=== PATIENT | female | born 1975 | race Caucasian/White ===

== ENCOUNTER → 2021-01-09 08:48 | Outpatient (BNVA) | payer OTHER, MEDICAID, SELFPAY | PROVIDERS: PCP Internal Medicine; Visit Provider Orthopaedic Surgery | DX: E13.9 Other specified diabetes mellitus without complications (principal); M17.11 Unilateral primary osteoarthritis, right knee | CPT/HCPCS: 99212 ==

== ENCOUNTER 2021-01-30 07:57 | Outpatient (REF) | payer OTHER, MEDICAID, SELFPAY ==
--- NOTE | ~2021-01-30 | MM_ITS ---
EXAMINATION: MM SCREENING DIGITAL BREAST TOMOSYNTHESIS, BILATERAL CLINICAL INFORMATION: Screening. Asymptomatic. Prior reduction mammoplasty 2016. The lifetime risk of breast cancer based on the Tyrer-Cuzick Model is 9%. COMPARISON: Mammography: 01/25/2020, 01/16/2019, 01/14/2018 TECHNIQUE: Digital breast tomosynthesis is performed in both the craniocaudal and mediolateral oblique views along with computer-aided detection (CAD). Synthesized 2D images are generated from the tomosynthesis. FINDINGS: There are scattered areas of fibroglandular density (ACR BI-RADS breast composition Category b). There are no significant masses, abnormal calcifications, or other abnormalities. Parenchymal pattern is similar to prior exams. Minor scarring from reduction mammoplasty stable. There is a stable circumscribed nodule posterior 8:00 right breast. MM/MM tomosynthesis screening BI IMPRESSION: No mammographic evidence of malignancy. ASSESSMENT: BI-RADS 2: Benign RECOMMENDATION: Routine annual mammography screening. This patient's information was entered into a reminder system with a target due date for their next mammogram.
== END 2021-01-30 07:58 | disposition home or self-care (01) ==
LOC: HO.MAMMO 07:57
PROVIDERS: PCP Internal Medicine; Visit Provider Internal Medicine
DX: Z12.31 Encounter for screening mammogram for malignant neoplasm of breast (principal)
CPT/HCPCS: 77063; 77067

== ENCOUNTER 2021-03-28 09:33 | Outpatient (REF) | payer OTHER, SELFPAY ==
[2021-03-28 11:21] LABS: MANUAL DIFF FLAG NO
[2021-03-28 11:31] LABS: Basophils Absolute Auto 0.1 X10*3/uL (0.0-0.2); Basophils Percent Auto 0.6 % (0-2); Eosinophils Absolute Auto 0.2 X10*3/uL (0.0-0.4); Eosinophils Percent Auto 2.3 % (0-4); Hematocrit 41.2 % (37-47); Hemoglobin 13.1 g/dl (12.0-16.0); Imm Gran Abs Auto 0.09 X10*3/uL (0.00-0.03); Imm Gran Pct Auto 1.1 % (0.0-0.4); Lymphocytes Absolute Auto 2.1 X10*3/uL (1.2-4.9); Lymphocytes Percent Auto 24.4 % (20-40); Mean Corpuscular HGB Conc 31.8 g/dl (31.0-35.0); Mean Corpuscular Hemoglobin 27.6 pg (27.0-33.0); Mean Corpuscular Volume 86.7 fL (80-98); Mean Platelet Volume 10.1 fL (9.4-12.3); Monocytes Absolute Auto 0.7 X10*3/uL (0.1-1.2); Monocytes Percent Auto 7.7 % (2-11); Neutrophils Absolute Auto 5.4 X10*3/uL (2.0-8.3); Neutrophils Percent Auto 63.9 % (45-73); Platelet Count 375 X10*3/uL (160-400); Red Blood Count 4.75 X10*6/uL (4.20-5.50); White Blood Count 8.4 X10*3/uL (4.8-10.8)
[2021-03-28 11:41] LABS: Estimated Average Glucose 140 mg/dL; Hemoglobin A1c % 6.5 %
[2021-03-28 11:46] LABS: Alanine Aminotransferase 21 U/L (0-31); Albumin Level 4.1 g/dL (3.5-5.0); Alkaline Phosphatase 99 U/L (39-117); Anion Gap 11 (12-20); Aspartate Amino Transferase 13 U/L (5-31); Bilirubin Total 0.5 mg/dL (0.0-1.0); Blood Urea Nitrogen 12 mg/dL (9-16); Calcium 9.1 mg/dL (8.4-10.2); Carbon Dioxide 29 mmol/L (22-29); Chloride 104 mmol/L (96-108); Cholesterol 195 mg/dL; Estimated Glomerular Filt Rate > 60; Glucose Fasting 122 mg/dL (60-99); HDL Cholesterol 41 mg/dL; LDL Cholesterol Calculated 136 mg/dl; Potassium 4.5 mmol/L (3.3-5.1); Sodium 139 mmol/L (135-145); Total Protein 6.9 g/dL (6.5-8.0); Triglycerides 91 mg/dL
[2021-03-28 12:37] LABS: Creatinine Urine 204.45 mg/dL; Microalbum/Creatinine Ratio Ur 7.8 ug/mg cr
[2021-03-29 12:44] LABS: LDL Cholesterol Direct 131 mg/dL (<100)
== END 2021-03-28 09:34 | disposition home or self-care (01) ==
LOC: HO.HMGCLDS 09:33
PROVIDERS: PCP Internal Medicine; Visit Provider Internal Medicine
DX: Z00.01 Encounter for general adult medical examination with abnormal findings (principal); E13.9 Other specified diabetes mellitus without complications; F41.1 Generalized anxiety disorder; J45.909 Unspecified asthma, uncomplicated; Z91.09 Other allergy status, other than to drugs and biological substances
CPT/HCPCS: 36415; 80048; 80053; 80061; 82043; 83036; 83721; 85025

== ENCOUNTER 2021-08-22 07:52 | Outpatient (REF) | payer OTHER, SELFPAY ==
[2021-08-23 09:54] LABS: BV Int Neg Control Negative (Negative); BV Int Pos Control Positive (Positive)
[2021-08-23 11:02] LABS: CT PCR NOT DETECTED (Not Detect.); NG PCR NOT DETECTED (Not Detect.)
== END 2021-08-22 07:53 | disposition home or self-care (01) ==
LOC: HO.LAB 07:52
PROVIDERS: PCP Internal Medicine; Visit Provider Advanced Practice Midwife
DX: Z01.411 Encounter for gynecological examination (general) (routine) with abnormal findings (principal); Z11.3 Encounter for screening for infections with a predominantly sexual mode of transmission; N92.0 Excessive and frequent menstruation with regular cycle
CPT/HCPCS: 87480; 87491; 87510; 87591; 87660

== ENCOUNTER 2021-09-13 10:51 | Outpatient (REF) | payer OTHER, SELFPAY ==
--- NOTE | ~2021-09-13 | US_ITS ---
EXAMINATION: US PELVIS CLINICAL INFORMATION: Excessive and frequent menstruation COMPARISON: Previous pelvic ultrasound January 2017 TECHNIQUE: Ultrasound of the pelvis is performed using both transabdominal and transvaginal transducers along with Doppler. Transvaginal imaging is performed due to inadequate visualization transabdominally. FINDINGS: The uterus is anteverted and measures 11 x 5.6 x 5.7 cm in dimension. Uterine echotexture is heterogeneous. No focal uterine lesion is seen. Endometrial thickness is normal measuring 0.9 cm. There are nabothian cysts in the cervix. The ovaries are normal-appearing. The right ovary measures 2.4 x 1.3 x 2.1 cm. The left ovary measures 2.9 x 2 x 2.1 cm. There is no fluid in the pelvis. US/US pelvic and transvaginal IMPRESSION: Slightly prominent heterogeneous appearing uterus. Normal thickness endometrium. Normal-appearing ovaries.
== END 2021-09-13 10:52 | disposition home or self-care (01) ==
LOC: HO.US 10:51
PROVIDERS: PCP Internal Medicine; Visit Provider Advanced Practice Midwife
DX: N92.0 Excessive and frequent menstruation with regular cycle (principal)
CPT/HCPCS: 76830; 76856

== ENCOUNTER 2021-09-26 07:55 | Outpatient (REF) | payer OTHER, SELFPAY ==
[2021-09-26 11:48] LABS: MANUAL DIFF FLAG NO
[2021-09-26 12:01] LABS: Basophils Percent Auto 0.7 % (0-2); Eosinophils Absolute Auto 0.2 X10*3/uL (0.0-0.4); Eosinophils Percent Auto 4.5 % (0-4); Hematocrit 37.5 % (37.0-47.0); Hemoglobin 11.9 g/dl (12.0-16.0); Imm Gran Abs Auto 0.01 X10*3/uL (0.00-0.03); Imm Gran Pct Auto 0.2 % (0.0-0.4); Lymphocytes Absolute Auto 1.5 X10*3/uL (1.2-4.9); Lymphocytes Percent Auto 33.9 % (20-40); Mean Corpuscular HGB Conc 31.7 g/dl (31.0-35.0); Mean Corpuscular Hemoglobin 27.7 pg (27.0-33.0); Mean Corpuscular Volume 87.2 fL (80.0-98.0); Monocytes Absolute Auto 0.4 X10*3/uL (0.1-1.2); Monocytes Percent Auto 8.1 % (2-11); Neutrophils Absolute Auto 2.3 x10*3/uL (2.0-8.3); Neutrophils Percent Auto 52.6 % (45-73); Platelet Count 272 X10*3/uL (160-400); Red Cell Distribution Width 13.3 % (11.0-16.0); White Blood Count 4.4 X10*3/uL (4.8-10.8)
[2021-09-26 12:16] LABS: Creatinine Urine 140.02 mg/dL; Microalbum/Creatinine Ratio Ur 14.2 ug/mg cr
[2021-09-26 12:55] LABS: Estimated Average Glucose 143 mg/dL; Hemoglobin A1c % 6.6 %
== END 2021-09-26 07:56 | disposition home or self-care (01) ==
LOC: HO.HMGCLDS 07:55
PROVIDERS: PCP Internal Medicine; Visit Provider Internal Medicine
DX: Z00.01 Encounter for general adult medical examination with abnormal findings (principal); E13.9 Other specified diabetes mellitus without complications; F41.1 Generalized anxiety disorder; J45.909 Unspecified asthma, uncomplicated; Z91.09 Other allergy status, other than to drugs and biological substances
CPT/HCPCS: 36415; 82043; 83036; 85025

== ENCOUNTER 2021-09-27 08:09 | Outpatient (REF) | payer OTHER, SELFPAY ==
[2021-09-27 10:20] LABS: Thyroid Stimulating Hormone 1.14 uIU/mL (0.32-4.0)
== END 2021-09-27 08:10 | disposition home or self-care (01) ==
LOC: HO.LAB 08:09
PROVIDERS: PCP Internal Medicine; Visit Provider Advanced Practice Midwife
DX: N92.0 Excessive and frequent menstruation with regular cycle (principal); N76.0 Acute vaginitis; B96.89 Other specified bacterial agents as the cause of diseases classified elsewhere; N93.9 Abnormal uterine and vaginal bleeding, unspecified; N92.1 Excessive and frequent menstruation with irregular cycle
CPT/HCPCS: 36415; 58100; 81025; 84443; 88305

== ENCOUNTER → 2021-10-16 11:09 | Outpatient (BNVA) | payer OTHER, SELFPAY | PROVIDERS: PCP Internal Medicine; Visit Provider Advanced Practice Midwife ==

== ENCOUNTER 2022-01-23 07:01 | Outpatient (REF) | payer OTHER, SELFPAY ==
[2022-01-23 07:32] LABS: Estimated Average Glucose 140 mg/dL; Hemoglobin A1c % 6.5 %
[2022-01-23 07:54] LABS: Alanine Aminotransferase 16 U/L (0-31); Albumin Level 3.9 g/dL (3.5-5.0); Alkaline Phosphatase 79 U/L (39-117); Anion Gap 9 (12-20); Aspartate Amino Transferase 16 U/L (5-31); Bilirubin Total 0.5 mg/dL (0.0-1.0); Blood Urea Nitrogen 10 mg/dL (9-16); Calcium 8.6 mg/dL (8.4-10.2); Carbon Dioxide 27 mmol/L (22-29); Chloride 107 mmol/L (96-108); Cholesterol 180 mg/dL; Estimated Glomerular Filt Rate > 60; Glucose Fasting 126 mg/dL (60-99); HDL Cholesterol 40 mg/dL; LDL Cholesterol Calculated 123 mg/dl; Potassium 4.1 mmol/L (3.3-5.1); Sodium 139 mmol/L (135-145); Total Protein 6.5 g/dL (6.5-8.0); Triglycerides 88 mg/dL
[2022-01-23 08:28] LABS: Creatinine Urine 123.91 mg/dL; Microalbum/Creatinine Ratio Ur 8.8 ug/mg cr
== END 2022-01-23 07:02 | disposition home or self-care (01) ==
LOC: HO.LAB 07:01
PROVIDERS: PCP Internal Medicine; Visit Provider Internal Medicine
DX: E13.9 Other specified diabetes mellitus without complications (principal); F41.1 Generalized anxiety disorder; Z91.09 Other allergy status, other than to drugs and biological substances
CPT/HCPCS: 36415; 80053; 80061; 82043; 83036

== ENCOUNTER 2022-02-06 08:56 | Outpatient (REF) | payer OTHER, SELFPAY ==
--- NOTE | ~2022-02-06 | MM_ITS ---
EXAMINATION: MM SCREENING DIGITAL BREAST TOMOSYNTHESIS, BILATERAL CLINICAL INFORMATION: Screening. Asymptomatic. The lifetime risk of breast cancer based on the Tyrer-Cuzick Model is 9%. COMPARISON: Mammography: 01/30/2021 and studies dating back to 06/16/2012. TECHNIQUE: Digital breast tomosynthesis is performed in both the craniocaudal and mediolateral oblique views along with computer-aided detection (CAD). Synthesized 2D images are generated from the tomosynthesis. FINDINGS: There are scattered areas of fibroglandular density (ACR BI-RADS breast composition Category b). There is a stable proximal pattern of the right breast with no new abnormal dominant mass or suspicious grouping of microcalcifications. About the superior aspect of the left breast, approximately 5 cm from nipple, there is a faint 5 mm density without microcalcifications which was not definitely identified on prior studies. I do not definitely see a correlate on craniocaudal view. On craniocaudal view, there is a lobular density likely related to superposition of fibroglandular tissue, for which spot compression view is also recommended. MM/MM tomosynthesis screening BI IMPRESSION: Left breast densities for further evaluation with spot compression views and possible ultrasound if these are persistent findings. ASSESSMENT: BI-RADS 0: Incomplete - Need Additional Imaging Evaluation RECOMMENDATION: 1. Additional views of the left breast. 2. Targeted ultrasound if warranted after review of the additional views. 3. Radiology department staff will contact the patient for additional imaging. This patient's information was entered into a reminder system with a target due date for their next mammogram.
== END 2022-02-06 08:57 | disposition home or self-care (01) ==
LOC: HO.MAMMO 08:56
PROVIDERS: PCP Internal Medicine; Visit Provider Internal Medicine
DX: Z12.31 Encounter for screening mammogram for malignant neoplasm of breast (principal)
CPT/HCPCS: 77063; 77067

== ENCOUNTER 2022-02-13 08:56 | Outpatient (REF) | payer OTHER, SELFPAY ==
--- NOTE | ~2022-02-13 | MM_ITS ---
EXAMINATION: MM DIAGNOSTIC DIGITAL BREAST TOMOSYNTHESIS, LEFT CLINICAL INFORMATION: Recall from screening for question of unrelated asymmetric densities left breast. Prior history reduction mammoplasty 2016. COMPARISON: Mammography: 02/06/2022, 01/30/2021, 01/25/2020, 01/16/2019, 01/14/2018, 01/11/2017 TECHNIQUE: Digital breast tomosynthesis is performed. 2D images are generated from the tomosynthesis. The following views are obtained: Spot CC, spot ML x2. FINDINGS: There are scattered areas of fibroglandular density (ACR BI-RADS breast composition Category b). The additional views show no persistent asymmetric density or interval developing density or architectural abnormality. Parenchymal pattern is similar to prior studies. Results are discussed with the patient at time of visit. MM/MM tomosynthesis added views L IMPRESSION: Additional views show no persistent asymmetric density or other abnormality. No significant changes from prior studies. ASSESSMENT: BI-RADS 1: Negative RECOMMENDATION: Routine annual mammography screening. This patient's information was entered into a reminder system with a target due date for their next mammogram.
== END 2022-02-13 08:57 | disposition home or self-care (01) ==
LOC: HO.MAMMO 08:56
PROVIDERS: Visit Provider Internal Medicine
DX: R92.8 Other abnormal and inconclusive findings on diagnostic imaging of breast (principal); Z41.1 Encounter for cosmetic surgery
CPT/HCPCS: 77061; 77065

== ENCOUNTER 2022-02-19 12:26 | Outpatient (REF) | payer OTHER, MEDICAID, SELFPAY ==
--- NOTE | ~2022-02-19 | XR_ITS ---
EXAMINATION: KNEE X-RAY CLINICAL INFORMATION: Pain COMPARISON: Right knee MRI from 2018 TECHNIQUE: Standing AP view of both knees and lateral and sunrise view of the left knee FINDINGS: Left knee: Bone alignment is normal. No fracture or dislocation is seen. There are small osteophytes at the medial femoral tibial and patellofemoral joints. There is no joint effusion. Standing AP view of the right knee demonstrates arthritis at the medial femoral tibial joint with joint space narrowing and osteophyte formation. XR/XR knee LT 2V IMPRESSION: Degenerative changes.
--- NOTE | ~2022-02-19 | XR_ITS ---
EXAMINATION: KNEE X-RAY CLINICAL INFORMATION: Pain COMPARISON: Right knee MRI from 2018 TECHNIQUE: Standing AP view of both knees and lateral and sunrise view of the left knee FINDINGS: Left knee: Bone alignment is normal. No fracture or dislocation is seen. There are small osteophytes at the medial femoral tibial and patellofemoral joints. There is no joint effusion. Standing AP view of the right knee demonstrates arthritis at the medial femoral tibial joint with joint space narrowing and osteophyte formation. XR/XR knee standing BI IMPRESSION: Degenerative changes.
== END 2022-02-19 12:27 | disposition home or self-care (01) ==
LOC: HO.HOSX 12:26
PROVIDERS: PCP Internal Medicine; Visit Provider Orthopaedic Surgery
DX: M23.92 Unspecified internal derangement of left knee (principal)
CPT/HCPCS: 73560; 73565; 99212

== ENCOUNTER → 2022-04-26 08:56 | Outpatient (BNVA) | payer OTHER, SELFPAY | PROVIDERS: PCP Internal Medicine; Visit Provider Orthopaedic Surgery | DX: M23.92 Unspecified internal derangement of left knee (principal) | CPT/HCPCS: 99212 ==

== ENCOUNTER 2022-05-14 13:48 | Outpatient (REF) | payer OTHER, SELFPAY ==
--- NOTE | ~2022-05-14 | MR_ITS ---
EXAMINATION: MR KNEE WITHOUT CONTRAST, LEFT CLINICAL INFORMATION: Unspecified internal derangement. COMPARISON: X-ray 02/19/2022 TECHNIQUE: MRI of the knee without contrast was performed using routine sequences on a high-field scanner. FINDINGS: MENISCI: Medial Meniscus: There is degenerative fraying of the posterior root. Otherwise intact. Lateral Meniscus: Intact LIGAMENTS: Cruciate: ACL is intact. Mild T2 signal in the PCL, could reflect myxoid degeneration and/or sprain.. Collateral: Intact EXTENSOR MECHANISM: Intact ARTICULAR CARTILAGE/BONE: Patellofemoral Compartment: Foci of cartilage fissuring in the central patella and lateral patellar facet. Medial Compartment: Foci mild cartilage fissuring in the weightbearing femur. Degenerative cysts underlying the tibial spines. Lateral Compartment: Intact. JOINT FLUID AND BURSAE: Small effusion. Subcutaneous edema anteriorly. Small cystic focus adjacent to the proximal lateral gastrocnemius tendon, probable ganglion cyst. MR/MR knee LT wo con IMPRESSION: 1. Degenerative fraying of the posterior root of the medial meniscus. 2. ACL findings could reflect myxoid degeneration and/or sprain. 3. Mild patellofemoral and medial compartment arthritis. 4. Small effusion. Probable small ganglion cyst adjacent to the proximal lateral gastrocnemius tendon.
== END 2022-05-14 13:49 | disposition home or self-care (01) ==
LOC: HO.MRI 13:48
PROVIDERS: Visit Provider Orthopaedic Surgery
DX: M23.92 Unspecified internal derangement of left knee (principal)
CPT/HCPCS: 73721

== ENCOUNTER → 2022-05-24 14:31 | Outpatient (BNVA) | payer OTHER, SELFPAY | PROVIDERS: PCP Internal Medicine; Visit Provider Orthopaedic Surgery | DX: S83.242A Other tear of medial meniscus, current injury, left knee, initial encounter (principal) | CPT/HCPCS: 99212 ==

== ENCOUNTER 2022-06-11 15:00 | Outpatient (RCR) | payer OTHER, SELFPAY ==
--- NOTE | 2022-05-16 11:40 | MHC.PT.EP ---
[facility] [place] Office [place] Office [place] Office [address] [phone] F: [phone] F: [phone] F: [phone] F: [phone] Physical Therapy Plan of Care Date of Evaluation: Date of Surgery: N/A Diagnosis: Unspecified internal derangement of left knee Assessment: Geri is a 47 yo F referred to PT for unspecified internal derangement of left knee. She has difficulty walking for greater than 40 minutes at a time, kneeling and ambulates stairs 1 step at a time with difficulty. She receives some help with ADLs and is unable to go bike riding. Upon exam she presents with decrease hip and knee strength, TTP over medial knee joint line, pes anserine, ITB and lack of functional endurance. She also has slightly limited lumbar ROM. Geri will benefit from skilled PT to address the aforementioned impairments and relieve tissue strain in L IT Band, proximal gastroc, and distal hamstring along with education on proper gait mechanics. Frequency and Duration: The patient will be seen 2/ week for 5 weeks Short Term Goals: Patient will reports a 50% decrease in pain that will allow her to advance to functional activities in 3 weeks. Patient will able to move knee through full plane of motion without pain which will enable her negotiate stairs without pain in 3 weeks. Care Home Goals: Patient will be I with [facility] to encourage detention pain management strategies and maintain level of function in 5 weeks. Patient will demonstrate a 1/2 grade increase in gross hip and knee strength that will allow her to walk for extended periods of time at work without onset of pain in 5 weeks. Treatment Plan: Modalities to reduce pain, spasms and effusion. Manual therapy to restore motion and function. Therapeutic exercise to improve strength and flexibility. Neuromuscular re-education for posture and balance. Therapeutic activities to return to functional activities of daily living. Electronically signed by: Deana Zhang PT DPT Please sign and return to therapist. Thank you for your referral.
--- NOTE | 2022-07-19 08:42 | MHC.PT.DC ---
[facility] [place] Office [place] Office [place] Office [address] [phone] F: [phone] F: [phone] F: [phone] F: [phone] Physical Therapy Discharge Report Diagnosis: Unspecified internal derangement of left knee Date of Surgery: N/A Date of Evaluation: 05/16/22 Date of Discharge: 07/19/22 Treatments to Date: 8 Cancellations to Date: No Shows to Date: Discharge Status: Improved Function Independent with HEP Discharge Summary: Geri completed 8 PT visits. She has improved significantly and is independent with all HEPs. She however reports of not having complete resolution of symptoms. She was therefore advised to continue with HEP. Geri has been d/c from PT. Electronically signed by: Deana Zhang PT DPT Please sign and return to therapist. Thank you for your referral.
== END 2022-08-22 13:49 | disposition home or self-care (01) ==
LOC: HO.PT 15:00
PROVIDERS: PCP Internal Medicine; Visit Provider Orthopaedic Surgery
DX: M23.92 Unspecified internal derangement of left knee (principal)
CPT/HCPCS: 97035; 97110; 97140; 97161

== ENCOUNTER → 2022-06-28 08:56 | Outpatient (BNVA) | payer OTHER, SELFPAY | PROVIDERS: PCP Internal Medicine; Visit Provider Orthopaedic Surgery | DX: S83.242A Other tear of medial meniscus, current injury, left knee, initial encounter (principal) | CPT/HCPCS: 20610; 99212; J1100 ==

== ENCOUNTER 2022-07-12 18:13 | Emergency (ER) | payer OTHER, SELFPAY ==
--- NOTE | ~2022-07-12 | XR_ITS ---
EXAMINATION: XR KNEE, LEFT CLINICAL INFORMATION: Pain COMPARISON: 02/19/2022 TECHNIQUE: Four views of the left knee. FINDINGS: Osseous alignment is anatomic. Joint spaces appear relatively well-preserved with minimal spurring noted. No acute fracture is seen. No significant effusion. XR/XR knee LT 3V IMPRESSION: No acute findings identified.
--- NOTE | ~2022-07-12 | US_ITS ---
US/US venous duplex LE LT IMPRESSION: No DVT demonstrated in the left lower extremity. EXAMINATION: US VENOUS ULTRASOUND WITH DOPPLER LOWER EXTREMITY, LEFT CLINICAL INFORMATION: Left lower extremity pain COMPARISON: None TECHNIQUE: Ultrasound of the deep veins is performed from the hip to the calf with compression sonography and color and pulse Doppler assessment. Spectral analysis with color-flow imaging is performed. FINDINGS: There is normal venous compression and respiratory variation and augmented flow. The visualized common femoral vein, superficial femoral vein, profunda femoral vein, popliteal vein, and the trifurcation region shows no evidence of deep venous thrombosis. There is no significant popliteal fossa cyst. If the patient's symptoms persist, followup ultrasound in 5 days 7 days might be of value to exclude proximal propagation from a non-visualized calf vein.
[2022-07-12 19:21] VITALS: PULSE 82; RESP 14; TEMP 36.8; O2SAT 99; BMI 41.5
[2022-07-12 19:30] VITALS: BP 125/62; PULSE 65; RESP 14; TEMP -17.7; TEMP 0.2; O2SAT 99; BMI 41.5
--- NOTE | 2022-07-12 23:02 | ED_ITS ---
HPI - Extremity Injury (Lower) General Chief Complaint: Extremity Injury, Lower Stated Complaint: pain behind left knee Time Seen by Provider: 07/12/22 22:59 History of Present Illness HPI Narrative: Patient is a 47-year-old female presents today with having left knee pain that is been ongoing for the last 2 months. Been seen by an orthopedist had an MRI of the knee done. It was positive for having a meniscal tear. Now is complaining of worsening pain especially in the back of the knee. Patient denies any swelling. No history of being on control pills. No history of shortness of breath. No history of blood clots no history of cancer. Patient is from home. She is larger in size. She denies any chest pain shortness of breath dizziness nausea vomiting. The pain is localized it is worse with walking. Patient is from home. Related Data Home Medications Medication Instructions Recorded Confirmed fluticasone furoate 200 1 inh inhalation DAILY 03/27/22 03/27/22 mcg-vilanterol 25 mcg/dose inhalation powder (Breo Ellipta) Previous Rx's Medication Instructions Recorded albuterol sulfate 90 mcg/actuation 2 puff inhalation Q4-6H PRN 03/28/21 aerosol inhaler (ProAir HFA) bronchospasm 30 days #18 grams venlafaxine 37.5 mg 37.5 mg PO DAILY 90 days #90 caps 03/28/21 capsule,extended release 24 hr cetirizine 10 mg capsule (All Day 10 mg PO DAILY 90 days #90 caps 02/13/22 Allergy (cetirizine)) prednisone 10 mg tablet 10 mg PO DAILY 7 days #7 tabs 03/27/22 oxycodone 5 mg tablet 5 mg PO Q8H PRN pain #7 tabs 07/13/22 Allergies Allergy/AdvReac Type Severity Reaction Status Date / Time shellfish derived Allergy Severe HIVES/SWELL Verified 06/28/22 09:01 [SHELLFISH DERIVED] ING Environmental Allergy Unknown unknown Uncoded 01/26/22 09:22 Fruits Allergy Unknown hives/swell Uncoded 01/26/22 09:22 ing Raw fruits Allergy Unknown itching, Uncoded 01/26/22 09:22 rhinitis Review of Systems Review of Systems: Positive for left knee pain. Yes all other systems are reviewed and are negative PMFSH Past Medical History Attestation statement: The following information was validated with the patient. Medical History Anxiety, generalized Diabetes 1.5, managed as type 2 Environmental allergies Surgical History History of bilateral tubal ligation History of breast biopsy History of section History of wisdom tooth extraction Status post breast reduction Family History Family History Family/Other HTN (hypertension) Depression Type 2 diabetes mellitus Mother Asthma Arthritis Maternal Grandfather No problems noted. Maternal Grandmother No problems noted. Paternal Grandfather No problems noted. Paternal Grandmother No problems noted. Brother No problems noted. Brother No problems noted. Daughter No problems noted. Sister No problems noted. Sister Mental health disorder Sister No problems noted. Sister No problems noted. Son No problems noted. Son No problems noted. 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 Oriented X3. No acute distress. Eyes: Pupils equal, round and reactive to light. ENT: Pharynx normal. Neck: Normal inspection. Neck supple. No lymph nodes noted. No crepitus CVS: Normal heart rate and rhythm. Pulses normal. Normal S1 and S2 Respiratory: No respiratory distress. Breath sounds normal. No Wheezing. No rales Abdomen: Soft and nontender. No rigidity. No distention. good BS x4 Skin: Skin warm and dry. Normal skin color. Normal skin turgor. Extremities: Examination of the left leg showed no patellar tenderness. No medial lateral collateral ligament tenderness. There is no calf swelling. Range of motion at the knee grossly intact. Distal pulses intact. The calf size approximately equal at 10 cm below the tibial tuberosity bilaterally. Distal pulses intact 2+ at dorsalis pedis. Sensation over the foot intact. Neuro: Oriented X 3. No motor deficit. No sensory deficit. Moving all e xtermities. No slurred speech MDM - Extremity Injury (Lower) MDM Narrative Medical decision making narrative: Patient's x-ray showed no acute fracture. Ultrasound of lower extremity showed no acute DVT. Will discharge patient home. Question meniscal tear. Will require follow-up with orthopedics. Discharge Plan Discharge Clinical Impression: Acute meniscal injury of knee Patient Disposition: Home, Self-Care Instructions: Meniscus Tear (ED) Prescriptions: New oxycodone 5 mg tablet 5 mg PO Q8H PRN (Reason: pain) Qty: 7 0RF Rx Instructions: Partial Fill upon patient request. No Action All Day Allergy (cetirizine) 10 mg capsule 10 mg PO DAILY 90 Days Qty: 90 1RF venlafaxine 37.5 mg capsule,extended release 24hr 37.5 mg PO DAILY 90 Days Qty: 90 1RF albuterol sulfate [ProAir HFA] 90 mcg/actuation HFA aerosol inhaler 2 puff inhalation Q4-6H PRN (Reason: bronchospasm) 30 Days Qty: 18 5RF Breo Ellipta 200-25 mcg/dose blister with device 1 inh inhalation DAILY prednisone 10 mg tablet 10 mg PO DAILY 7 Days Qty: 7 0RF Referrals: Arnaldo Gamez MD [Physician] -
== END 2022-07-13 00:43 | disposition home or self-care (01) ==
PROVIDERS: Emergency Provider Emergency Medicine Emergency Medical Services; PCP Internal Medicine
DX: S83.242A Other tear of medial meniscus, current injury, left knee, initial encounter (principal); X58.XXXA Exposure to other specified factors, initial encounter; M25.562 Pain in left knee; Y93.9 Activity, unspecified; Y92.9 Unspecified place or not applicable; Y99.9 Unspecified external cause status
CPT/HCPCS: 73562; 93971; 99282; 99284

== ENCOUNTER → 2022-07-19 09:41 | Outpatient (BNVA) | payer OTHER, SELFPAY | PROVIDERS: PCP Internal Medicine; Visit Provider Orthopaedic Surgery | DX: S83.242D Other tear of medial meniscus, current injury, left knee, subsequent encounter (principal) | CPT/HCPCS: 99212 ==

== ENCOUNTER 2022-08-01 10:57 | Day surgery (SDC) | payer OTHER, SELFPAY ==
[2022-07-26 14:20] VITALS: BMI 41.5
[2022-08-01] VITALS (9 sets, daily range): BP systolic 119–153; BP diastolic 68–98; PULSE 57–69; RESP 16–18; TEMP 36.3–36.4; O2SAT 95–99
[2022-08-01] MEDS: Lactated Ringers 1,000 ML 50 ML IVCONT (11:27)
--- NOTE | 2022-08-01 13:15 | HO.ANESPROP2 ---
HPI - Anesthesia Eval Consult details Narrative: 47 F for left knee scope Obesity, Asthma PMFSH Active Problems Active Problems: All Active Problems (Updated 07/26/22 @ 13:32 by Josephine Villeda RN) Encounter for general adult medical examination with abnormal findings (Acute) Asthma, moderate (Acute) Encounter for annual routine gynecological examination (Acute) Heavy menstrual bleeding (Acute) Morbid obesity with BMI of 40.0-44.9, adult (Acute) Internal derangement of left knee (Acute) Asthma exacerbation (Acute) Tear of medial meniscus of left knee (Acute) Diabetes 1.5, managed as type 2 (Acute) Environmental allergies (Acute) Anxiety, generalized (Acute) Past Medical History Medical History (Updated 07/26/22 @ 13:32 by Josephine Villeda RN) Anxiety, generalized Asthma Diabetes 1.5, managed as type 2 Environmental allergies Obesity Functional capacity: independent ambulation Family History Family History Family/Other HTN (hypertension) Depression Type 2 diabetes mellitus Mother Asthma Arthritis Maternal Grandfather No problems noted. Maternal Grandmother No problems noted. Paternal Grandfather No problems noted. Paternal Grandmother No problems noted. Brother No problems noted. Brother No problems noted. Daughter No problems noted. Sister No problems noted. Sister Mental health disorder Sister No problems noted. Sister No problems noted. Son No problems noted. Son No problems noted. 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 Cognitive needs: No Hearing needs: No Vision needs: Yes Meds Allergies Allergy/AdvReac Type Severity Reaction Status Date / Time shellfish derived Allergy Severe HIVES/SWELL Verified 07/26/22 13:32 [SHELLFISH DERIVED] ING Environmental Allergy Unknown unknown Uncoded 07/26/22 13:32 Fruits Allergy Unknown hives/swell Uncoded 07/26/22 13:32 ing Raw fruits Allergy Unknown itching, Uncoded 07/26/22 13:32 rhinitis Active Medications: Current Medications Lactated Ringer's (Lr) 1,000 mls @ 50 mls/hr IVCONT .Q20H GRANT Last Admin: 08/01/22 11:27 Dose: 50 mls/hr Exam Exam Date and Time: August 01, 2022 1315 Height,Weight and Vital Signs: Height 5 ft 1 in Weight 99.79 kg Last Vital Signs Temp 97.6 F 08/01/22 11:05 Pulse 68 08/01/22 11:05 Resp 18 08/01/22 11:05 BP 152/98 H 08/01/22 11:05 Pulse Ox 97 08/01/22 11:05 O2 Del Method 08/01/22 11:05 Airway Mallampati Class: III TM Dist: >3cm Neck ROM: Full Loose/Missing/Broken Teeth: Yes Heart: S1,S2 Lungs: b/l breath sounds Assessment and Plan Assessment Anesthesia Assessment: Anesthesia Plan Discussed and Chart Reviewed Final Anesthetic Review Family History of Problems with Anesthesia: No History of Problems with Anesthesia: No NPO: Yes ASA Class: III Final Preanesthetic Review: Meds/Allgs Chart Reviewed, Consent Obtained/Reviewed and Anes Risks/Benef Reviewed Patient Risk: Intermediate Procedure Risk: Intermediate Anesthetic Plan Anesthetic Plan: GA Disposition: Standard PACU
--- NOTE | 2022-08-01 13:16 | MHC.SHP ---
Pre-Procedural Eval Section A Date of Service: 08/01/22 The patient is an INPATIENT: No Changes since office visit: Yes Patient answered all questions; No Cold of Flu in the past 2 weeks, No New Medical Problems and No Changes in Medication The History & Physical has been completed within 30 days and I have reviewed it.: Yes Section B Chief Complaint: Other tear of medial meniscus, current injury, lef Allergies: Allergies Allergy/AdvReac Type Severity Reaction Status Date / Time shellfish derived Allergy Severe HIVES/SWELL Verified 07/26/22 13:32 [SHELLFISH DERIVED] ING Environmental Allergy Unknown unknown Uncoded 07/26/22 13:32 Fruits Allergy Unknown hives/swell Uncoded 07/26/22 13:32 ing Raw fruits Allergy Unknown itching, Uncoded 07/26/22 13:32 rhinitis Plan I have reviewed the history and physical and performed a pertinent physical examination on my patient. No changes have occurred unless specified.
--- NOTE | 2022-08-01 14:07 | P.BOP_ITS ---
Brief Operative Note Date of Service: 08/01/22 Pre-op diagnosis: Left knee internal derangement Post-op diagnosis: other (1) left knee OA. 2) left knee paelar maltracking) Procedure: Chondroplasty and lateral release left knee Surgeon: Arnaldo Gamez MD Anesthesia: GETA and local Was an Pre Sales Technical Consultant used for this Procedure?: No Estimated blood loss (mL): 5 Tourniquet time (min): 16 IV fluids (mL): 500 Pathology: none sent Condition: stable Disposition: PACU
--- NOTE | 2022-08-01 14:18 | P.OP_ITS ---
Operative Note Operative Note Date of Service: 08/01/22 Narrative: Date of Service: 08/01/22 Pre-op diagnosis: Left knee internal derangement Post-op diagnosis: other (1) left knee OA. 2) left knee patellar maltracking) Procedure: Chondroplasty and lateral release left knee Surgeon: Arnaldo Gamez MD Anesthesia: GETA and local Was an Ampoule Examiner used for this Procedure?: No Estimated blood loss (mL): 5 Tourniquet time (min): 16 IV fluids (mL): 500 Pathology: none sent Condition: stable Disposition: PACU Procedure in detail: Patient was brought to the operating room placed supine on the arthroscopic table and prepped and draped in standard sterile fashion. A time-out was called to identify proper site proper procedure proper surgeon and IV antibiotics per weight were administered. I began by exsanguinating the limb and insufflating tourniquet to 300 mm Hg. Then made a standard anterolateral stab incision. The knee was insufflated with water and 30 degree arthroscope was placed. There was grade 2/3 fibrillations of the central facet of the patella but overall suprapatellar pouch was plane and the gutters were clean. The patella was lateralized relative to the trochlea. I descended into the medial compartment where I made my medial portal under direct visualization. There was an intact medial meniscus. This was probed and while there were some minimal fibrillations, no intervention was required. The root was intact and there was grade 2 /3 changes throughout the weight bearing portion of the medial femoral condyle. This was debrided with a shaver and cautery. . The ACL/PCL was examined and found to be intact and the lateral compartment also was without the need for intervention. I then returned to the PF joint. I debrided the chondral fibrillations and perfromed a limited lateral release. This improved the medialization of the patella. I then removed all instrumentation and closed the portals with nylon suture. 25 mL of 2% Marcaine with epinephrine was injected into the joint and the surrounding soft tissues. Patient was then placed in sterile dressing extubated brought recovery room stable condition. There were no known complications.
[2022-08-01] MEDS: Acetaminophen 325 MG TABLET 650 MG PO (14:36)
[2022-08-01] MEDS: oxyCODONE HCl Immed Release 5 MG TABLET PO (14:37)
== END 2022-08-01 16:00 | disposition home or self-care (01) ==
PROVIDERS: PCP Internal Medicine; Visit Provider Orthopaedic Surgery
PROC: (CPT 29870; principal; 2022-08-01 14:00)
DX: M23.92 Unspecified internal derangement of left knee (principal); M22.2X2 Patellofemoral disorders, left knee; M17.12 Unilateral primary osteoarthritis, left knee; M25.462 Effusion, left knee; E13.9 Other specified diabetes mellitus without complications; J45.909 Unspecified asthma, uncomplicated; Z79.899 Other long term (current) drug therapy; Z98.890 Other specified postprocedural states
CPT/HCPCS: 29873; J0171; J0690; J1100; J2250; J2405; J2795; J3010

== ENCOUNTER 2022-09-18 09:00 | Outpatient (RCR) | payer OTHER, SELFPAY ==
--- NOTE | 2022-08-07 14:44 | MHC.PT.EP ---
[facility] [place] Office [place] Office [place] Office [address]ell Nu[address]ez [address] [phone] F: [phone] F: [phone] F: [phone] F: [phone] Physical Therapy Plan of Care Date of Evaluation: Date of Surgery: Diagnosis: LEFT KNEE Assessment: SANTO IS A PLEASANT 47 YO WHO PRESENTS POD #5 FOR ORTHOPEDIC FOLLOW UP AND PT EVALUATION FOLLOWING LATERAL RELEASE AND CHRONDROPLASTY. UPON EXAM SHE DEMONSTRATES THE EXPECTED IMPAIRMENTS OF DECREASED ROM, DECREASED STRENGTH, ALTERED POSTURE AND POSITIONING,ALTERED GAIT AND BALANCE, AND INCREASED PAIN AND EDEMA. FUNCTIONAL LIMITATIONS INCLUDE DECREASED ABILITY TO PERFORM HOMEMAKING AND SELF-CARE TASKS, DECREASED ABILITY TO PERFORM WALKING, RUNNING, JUMPING AND SQUATTING, INABILITY TO DRIVE AND PERFORM WORK TASKS, DECREASED PARTICIPATION IN COMMUNITY AND RECREATIONAL ACTIVITIES AND DISRUPTED SLEEP. THE Pt IS A GOOD CANDIDATE FOR SKILLED PT DUE TO AGE, POTENTIAL REMEDIATION OF IMPAIRMENTS, TYPICAL DISEASE/CONDITION PROGRESSION AND PROGNOSIS, COMORBIDITIES, AND MOTIVATION. PT WOULD BENEFIT FROM TAILORED PROGRAM OF THERAPEUTIC ACTIVITIES, FUNCTIONAL TRAINING, GAIT TRAINING, POSTURAL EDUCATION, NEUROMUSCULAR RE-EDUCATION, AND MODALITIES NEEDED. 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 Manual therapy to restore motion and function. Therapeutic exercise to improve strength and flexibility. Neuromuscular re-education for posture and balance. Therapeutic activities to return to functional activities of daily living. Electronically signed by: PRASHANTH HERRERA PT, DPT Please sign and return to therapist. Thank you for your referral.
--- NOTE | 2022-09-03 11:09 | MHC.PT.EP ---
[facility] [place] Office [place] Office [address] [phone] F: [phone] F: [phone] F: [phone] F: [phone] Physical Therapy Plan of Care Date of Evaluation: Date of Surgery: 08/01/22 Diagnosis: LEFT KNEE Assessment: : Geri is presenting with swelling, worse with WBing activities at work. She has full AROM this visit but painful end range and medial incision site is still not fully closed, questionable internal stitch poking through skin. She is able to progress more standing exercises to challenge her balance, working on quad and glute strengthening and endurance. She will benefit from continued skilled PT to work on functional movement and activities to restore to PLOF; 2x/week for 4 weeks. Frequency and Duration: The patient will be seen 2 X WEEK FOR 4 WEEKS Short Term Goals: INITIATE HEP AND PROMOTE SELF MANAGEMENT OF SYMPTOMS. [employer] Goals: TO DEMONSTRATE FULL KNEE ROM, EQUAL ADALBERTO MET TO DEMONSTRATE FULL LE STRENGTH, EQUAL ADALBERTO NOT MET TO ASCEND AND DESCEND STAIRS WITH RECIPROCAL GAIT WITHOUT PAIN GREATER THAN 2/10 NOT MET TO AMBULATE AD SEJAL ON LEVEL AND UNEVEN SURFACES FOR FITNESS WITHOUT PAIN GREATER THAN 2/10 NOT MET Treatment Plan: Modalities to reduce pain, spasms and effusion. Manual therapy to restore motion and function. Therapeutic exercise to improve strength and flexibility. Neuromuscular re-education for posture and balance. Therapeutic activities to return to functional activities of daily living. Electronically signed by: Jose Coon PT, DPT Please sign and return to therapist. Thank you for your referral.
--- NOTE | 2022-12-06 09:57 | MHC.PT.DC ---
[facility] [place] Office [place] Office [place] Office [address] Jewell Nuñez 140 [facility] [phone] F: [phone] F: [phone] F: [phone] F: [phone] Physical Therapy Discharge Report Diagnosis: LEFT KNEE Date of Surgery: 08/01/22 Date of Evaluation: 08/06/22 Date of Discharge: 12/06/22 Treatments to Date: 9 Cancellations to Date: 0 No Shows to Date: 0 Discharge Status: Patient Elected to Stop Discharge Summary: Patient was last treated in PT 09/18/2021. She ceased attending PT on her own accord and is therefore discharged from PT at this time. Electronically signed by: Jose Coon, PT, DPT Please sign and return to therapist. Thank you for your referral.
== END 2022-12-06 09:58 | disposition home or self-care (01) ==
LOC: HO.PT 09:00
PROVIDERS: Visit Provider Physician Assistant
DX: S83.242A Other tear of medial meniscus, current injury, left knee, initial encounter (principal)
CPT/HCPCS: 97110; 97112; 97116; 97140; 97161; 97530

== ENCOUNTER 2022-09-20 11:46 | Outpatient (REF) | payer OTHER, SELFPAY ==
[2022-09-20 15:18] LABS: CT PCR NOT DETECTED (Not Detect.); NG PCR NOT DETECTED (Not Detect.)
[2022-09-21 11:13] LABS: BV Int Neg Control Negative (Negative); BV Int Pos Control Positive (Positive)
== END 2022-09-20 11:47 | disposition home or self-care (01) ==
LOC: HO.LNP 11:46
PROVIDERS: Visit Provider Advanced Practice Midwife
DX: Z01.419 Encounter for gynecological examination (general) (routine) without abnormal findings (principal)
CPT/HCPCS: 87480; 87491; 87510; 87591; 87660

== ENCOUNTER 2022-09-26 12:29 | Outpatient (REF) | payer OTHER, SELFPAY ==
--- NOTE | ~2022-09-26 | XR_ITS ---
EXAMINATION: XR CHEST CLINICAL INFORMATION: Morbid obesity. COMPARISON: None TECHNIQUE: 2 views of the chest were obtained. FINDINGS: No significant abnormality is noted involving the heart, lungs, mediastinum, bony thorax or soft tissues. XR/XR chest 2V IMPRESSION: Unremarkable examination.
--- NOTE | 2022-09-26 12:37 | ECG_ITS ---
Test Reason : Obesity Blood Pressure : / mmHG Vent. Rate : 060 BPM Atrial Rate : 060 BPM P-R Int : 132 ms QRS Dur : 096 ms QT Int : 406 ms P-R-T Axes : 061 030 041 degrees QTc Int : 406 ms Normal sinus rhythm Normal ECG No previous ECGs available Referred By: Hernán Hernandez Electronically Signed By:JEMMA MARRERO MD
== END 2022-09-26 12:30 | disposition home or self-care (01) ==
LOC: HO.XRAY 12:29
PROVIDERS: PCP Internal Medicine; Visit Provider Surgery
DX: E66.01 Morbid (severe) obesity due to excess calories (principal); E13.9 Other specified diabetes mellitus without complications; J45.909 Unspecified asthma, uncomplicated; K21.9 Gastro-esophageal reflux disease without esophagitis
CPT/HCPCS: 71046; 93005

== ENCOUNTER 2022-09-27 07:49 | Outpatient (REF) | payer OTHER, SELFPAY ==
[2022-09-27 08:03] LABS: MANUAL DIFF FLAG NO
[2022-09-27 08:20] LABS: Basophils Absolute Auto 0.1 X10*3/uL (0.0-0.2); Basophils Percent Auto 0.8 % (0-2); Eosinophils Absolute Auto 0.2 X10*3/uL (0.0-0.4); Eosinophils Percent Auto 2.6 % (0-4); Hematocrit 39.8 % (37.0-47.0); Hemoglobin 12.7 g/dl (12.0-16.0); Imm Gran Abs Auto 0.02 X10*3/uL (0.00-0.03); Imm Gran Pct Auto 0.3 % (0.0-0.4); Lymphocytes Absolute Auto 1.7 X10*3/uL (1.2-4.9); Lymphocytes Percent Auto 21.4 % (20-40); Mean Corpuscular HGB Conc 31.9 g/dl (31.0-35.0); Mean Corpuscular Hemoglobin 26.9 pg (27.0-33.0); Mean Corpuscular Volume 84.3 fL (80.0-98.0); Mean Platelet Volume 9.7 fL (9.4-12.3); Monocytes Absolute Auto 0.6 X10*3/uL (0.1-1.2); Monocytes Percent Auto 7.6 % (2-11); Neutrophils Absolute Auto 5.3 x10*3/uL (2.0-8.3); Neutrophils Percent Auto 67.3 % (45-73); Platelet Count 333 X10*3/uL (160-400); Red Blood Count 4.72 X10*6/uL (4.20-5.50); Red Cell Distribution Width 12.9 % (11.0-16.0); White Blood Count 7.8 X10*3/uL (4.8-10.8)
[2022-09-27 08:46] LABS: Estimated Average Glucose 166 mg/dL; Hemoglobin A1c % 7.4 %
[2022-09-27 09:14] LABS: Alanine Aminotransferase 17 U/L (0-31); Albumin Level 4.2 g/dL (3.5-5.0); Alkaline Phosphatase 97 U/L (39-117); Anion Gap 12 (12-20); Aspartate Amino Transferase 17 U/L (5-31); Bilirubin Total 0.7 mg/dL (0.0-1.0); Blood Urea Nitrogen 11 mg/dL (9-16); C Reactive Protein 0.41 mg/dL (< or = 0.50); Calcium 9.1 mg/dL (8.4-10.2); Carbon Dioxide 27 mmol/L (22-29); Chloride 105 mmol/L (96-108); Cholesterol 217 mg/dL; Estimated Glomerular Filt Rate > 60; Ferritin 20 ng/mL (10-250); Glucose Random 169 mg/dL (60-115); HDL Cholesterol 38 mg/dL; Insulin 14 uU/mL (2-29); Iron 99 mcg/dL (30-160); LDL Cholesterol Calculated 159 mg/dl; Percent Iron Saturation 29 % (15-50); Potassium 4.5 mmol/L (3.3-5.1); Sodium 139 mmol/L (135-145); TSH reflex Free T4 1.79 uIU/mL (0.32-4.0); Total Iron Binding Capacity 346 mcg/dL (228-428); Total Protein 7.1 g/dL (6.5-8.0); Triglycerides 102 mg/dL; Unsaturated Iron Binding 247 ug/dL
[2022-09-27 09:44] LABS: Vitamin B12 451 pg/mL (200-900)
[2022-09-28 14:12] LABS: Calcium (PTHI) 9.2 mg/dL (8.6-10.2); PTHI 83 pg/mL (16-77)
[2022-10-01 21:12] LABS: Zinc 77 mcg/dL (60-130)
[2022-10-03 01:02] LABS: Vitamin A 48 mcg/dL (38-98)
[2022-10-03 16:21] LABS: Vitamin B1 9 nmol/L (8-30)
== END 2022-09-27 07:50 | disposition home or self-care (01) ==
LOC: HO.LAB 07:49
PROVIDERS: PCP Internal Medicine; Visit Provider Surgery
DX: E13.9 Other specified diabetes mellitus without complications (principal); E66.01 Morbid (severe) obesity due to excess calories; J45.909 Unspecified asthma, uncomplicated; K21.9 Gastro-esophageal reflux disease without esophagitis
CPT/HCPCS: 36415; 80053; 80061; 82306; 82607; 82728; 82746; 83036; 83525; 83540; 83970; 84425; 84443; 84590; 84630; 85025; 86140

== ENCOUNTER 2022-10-03 07:53 | Outpatient (REF) | payer OTHER, SELFPAY ==
[2022-10-04 13:29] LABS: H Pylori Breath Test Negative (Negative)
== END 2022-10-03 07:54 | disposition home or self-care (01) ==
LOC: HO.LNP 07:53
PROVIDERS: Surgery; PCP Internal Medicine; Referring Provider Internal Medicine; Visit Provider Physician Assistant Surgical
DX: E66.01 Morbid (severe) obesity due to excess calories (principal); K21.9 Gastro-esophageal reflux disease without esophagitis
CPT/HCPCS: 83013; 99211

== ENCOUNTER → 2022-10-18 12:00 | Outpatient (BNVA) | payer OTHER, SELFPAY | PROVIDERS: PCP Internal Medicine; Visit Provider Counselor Mental Health | DX: F43.20 Adjustment disorder, unspecified (principal); E66.01 Morbid (severe) obesity due to excess calories; Z68.41 Body mass index [BMI] 40.0-44.9, adult | CPT/HCPCS: 90791 ==

== ENCOUNTER 2022-11-07 08:06 | Outpatient (REF) | payer OTHER, SELFPAY ==
--- NOTE | ~2022-11-07 | US_ITS ---
EXAMINATION: US COMPLETE ABDOMEN WITH LIVER ELASTOGRAPHY CLINICAL INFORMATION: Morbid to severe obesity due to excess calories. COMPARISON: None. TECHNIQUE: Real-time imaging of the abdominal viscera. Noninvasive ultrasound liver fibrosis assessment is performed using Cindi ElastPQ point quantification shear wave elastography (2D-SWE) with a C5-2 MHz transducer. Multiple elastography samples are obtained. FINDINGS: PANCREAS: The visualized pancreatic head and body are normal in appearance. The remainder of the pancreas is obscured from visualization by the overlying bowel gas. ABDOMINAL AORTA: The proximal, middle, and distal aortic segments are normal in caliber. INFERIOR VENA CAVA: Visualized portions are normal. LIVER: The liver demonstrates normal size, contour and increased echogenicity. No focal lesion or intrahepatic biliary duct dilatation. The right lobe measures 18.8 cm in length. The left lobe measures 12.3 cm in length. Portal flow is hepatopedal. Shear wave liver elastography median stiffness is 1.33 m/s (reference: normal median stiffness is 1.3 m/s or less). IQR/median stiffness to assess sampling precision is 0.10 (reference: good quality data set is IQR/median stiffness of 0.15 or less). GALLBLADDER: The gallbladder is physiologically distended without evidence of stones, sludge, polyps, wall thickening or pericholecystic fluid. COMMON BILE DUCT: Normal in caliber measuring 0.5 cm in diameter. RIGHT KIDNEY: Normal. No hydronephrosis. No renal calculi or focal parenchymal lesions. The kidney measures 11.4 cm in maximum dimension. LEFT KIDNEY: Normal. No hydronephrosis. No renal calculi or focal parenchymal lesions. The kidney measures 10.5 cm in maximum dimension. SPLEEN: Normal. The spleen measures 12.1 cm in maximum dimension. FREE FLUID: None. US/US abdomen comp w elastography IMPRESSION: 1. Diffuse hepatic steatosis without focal lesion. 2. Liver elastography: Median liver stiffness 1.33 m/s corresponds to high probability normal. REFERENCE: Society of Radiologists in Ultrasound Liver Stiffness Thresholds (2020): LIVER STIFFNESS THRESHOLDS: *Liver Stiffness equal or less than 1.3 m/s: High probability of being normal. *Liver Stiffness less than 1.7 m/s: In the absence of other known clinical signs, rules out compensated advanced chronic liver disease. *Liver Stiffness 1.7-2.1 m/s: Suggestive of compensated advanced chronic liver disease but need further test for confirmation. *Liver Stiffness over 2.1 m/s: Rules in compensated advanced chronic liver disease. *Liver Stiffness over 2.4 m/s: Suggestive of clinically significant portal hypertension. QUALITY OF DATA SET: *IQR/Median value equal or less than 0.15 implies a quality data set. *IQR/Median value over 0.15 implies a poor quality data set. SIGNIFICANT CHANGE FROM PRIOR EXAM: Significant change if liver stiffness measurement is 10% or greater from prior exam. OTHER CONSIDERATIONS: The stage of liver fibrosis may be overestimated in the setting of acute hepatitis, liver inflammation, elevated liver function tests, hepatic vascular congestion, obstructive cholestasis, non-fasting state, and infiltrative diseases such as amyloidosis and lymphoma. In some patients with NAFLD, the liver stiffness thresholds for compensated advanced chronic liver disease may be lower. In causes other than viral hepatitis and NAFLD, liver stiffness thresholds are not well established.
== END 2022-11-07 08:07 | disposition home or self-care (01) ==
LOC: HO.US 08:06
PROVIDERS: Visit Provider Surgery
DX: E66.01 Morbid (severe) obesity due to excess calories (principal); K21.9 Gastro-esophageal reflux disease without esophagitis; J45.909 Unspecified asthma, uncomplicated; E13.9 Other specified diabetes mellitus without complications
CPT/HCPCS: 76705; 76981

== ENCOUNTER 2022-11-14 10:14 | Outpatient (REF) | payer OTHER, SELFPAY ==
--- NOTE | ~2022-11-14 | FL_ITS ---
EXAMINATION: XR FLUOROSCOPY UPPER GI WITH AIR CLINICAL INFORMATION: Morbid/severe obesity due to excess calories. COMPARISON: None TECHNIQUE: Routine upper GI air-contrast study was performed. FINDINGS: Following oral administration of thick barium and effervescent granules there is normal probation of bolus from the oral cavity through the pharynx, esophagus into stomach without any evidence of obstruction, narrowing or stricture. On placing patient supine and prone lying the course, caliber and peristalsis of the stomach, duodenal bulb and the sweep is normal. The mucosal pattern of the stomach and the duodenum is normal. There are mild secretions in the stomach. During the exam patient referred to having coffee 1 before the exam. FLUOROSCOPY TIME: 2.1 minute DOSE AREA PRODUCT: 29.983 uGy-m2 (microgray-meter squared) FL/FL upper GI w air IMPRESSION: 1. Unremarkable upper GI exam. 2. There is mild secretions in the stomach. During the patient referred to having coffee 1 hr before the exam is normal.
[2022-11-14 11:40] LABS: COVID-19 Test Positive (Negative); IDNOW Serial# 16C4AD1C
== END 2022-11-14 10:15 | disposition home or self-care (01) ==
LOC: HO.XRAY 10:14
PROVIDERS: Internal Medicine; Visit Provider Surgery
DX: Z20.822 Contact with and (suspected) exposure to COVID-19 (principal); E66.01 Morbid (severe) obesity due to excess calories; E13.9 Other specified diabetes mellitus without complications; J45.909 Unspecified asthma, uncomplicated; K21.9 Gastro-esophageal reflux disease without esophagitis
CPT/HCPCS: 74246; 87635; C9803

== ENCOUNTER 2022-11-14 11:14 | Outpatient (REF) | payer OTHER, SELFPAY | END 2022-11-14 11:15 | disposition home or self-care (01) | LOC: HO.LAB 11:14 | PROVIDERS: Visit Provider Internal Medicine | DX: Z13.89 Encounter for screening for other disorder (principal) ==

== ENCOUNTER → 2022-11-15 10:48 | Outpatient (BNVA) | payer OTHER, SELFPAY | PROVIDERS: PCP Internal Medicine; Visit Provider Dietitian, Registered | DX: E66.01 Morbid (severe) obesity due to excess calories (principal) | CPT/HCPCS: 97802 ==

== ENCOUNTER → 2022-11-26 08:01 | Outpatient (BNVA) | payer OTHER, SELFPAY | PROVIDERS: PCP Internal Medicine; Visit Provider Surgery | DX: Z13.89 Encounter for screening for other disorder (principal) ==

== ENCOUNTER → 2022-12-05 08:17 | Outpatient (BNVA) | payer OTHER, SELFPAY | PROVIDERS: PCP Internal Medicine; Visit Provider Surgery | DX: Z13.89 Encounter for screening for other disorder (principal) ==

== ENCOUNTER → 2022-12-14 12:56 | Outpatient (BNVA) | payer OTHER, SELFPAY | PROVIDERS: PCP Internal Medicine; Visit Provider Surgery | DX: Z13.89 Encounter for screening for other disorder (principal) ==

== ENCOUNTER 2022-12-20 08:00 | Inpatient (IN) | payer OTHER, SELFPAY ==
[2022-12-10 06:35] LABS: MANUAL DIFF FLAG NO
[2022-12-10 07:29] LABS: Basophils Absolute Auto 0.1 X10*3/uL (0.0-0.2); Basophils Percent Auto 1.3 % (0-2); Eosinophils Absolute Auto 0.2 X10*3/uL (0.0-0.4); Hematocrit 37.6 % (37.0-47.0); Hemoglobin 11.9 g/dl (12.0-16.0); Imm Gran Abs Auto 0.01 X10*3/uL (0.00-0.03); Imm Gran Pct Auto 0.2 % (0.0-0.4); Lymphocytes Absolute Auto 1.7 X10*3/uL (1.2-4.9); Lymphocytes Percent Auto 30.3 % (20-40); Mean Corpuscular HGB Conc 31.6 g/dl (31.0-35.0); Mean Corpuscular Volume 85.3 fL (80.0-98.0); Mean Platelet Volume 10.6 fL (9.4-12.3); Monocytes Absolute Auto 0.5 X10*3/uL (0.1-1.2); Monocytes Percent Auto 8.6 % (2-11); Neutrophils Absolute Auto 3.2 x10*3/uL (2.0-8.3); Neutrophils Percent Auto 56.6 % (45-73); Platelet Count 315 X10*3/uL (160-400); Red Blood Count 4.41 X10*6/uL (4.20-5.50); Red Cell Distribution Width 13.2 % (11.0-16.0); White Blood Count 5.6 X10*3/uL (4.8-10.8)
[2022-12-10 07:38] LABS: Prothrombin Time 11.2 SEC (10.0-13.1)
[2022-12-10 07:41] LABS: Partial Thromboplastin Time 33.9 SEC (26.0-36.4)
[2022-12-10 08:02] LABS: Estimated Average Glucose 137 mg/dL; Hemoglobin A1C 149.0146 umol/L; Hemoglobin A1c % 6.4 %
[2022-12-10 08:08] LABS: Alanine Aminotransferase 10 U/L (0-31); Alkaline Phosphatase 85 U/L (39-117); Anion Gap 12 (12-20); Aspartate Amino Transferase 13 U/L (5-31); Bilirubin Total 0.4 mg/dL (0.0-1.0); Blood Urea Nitrogen 10 mg/dL (9-16); C Reactive Protein 0.17 mg/dL (< or = 0.50); Calcium 8.9 mg/dL (8.4-10.2); Carbon Dioxide 25 mmol/L (22-29); Chloride 107 mmol/L (96-108); Cholesterol 152 mg/dL; Estimated Glomerular Filt Rate > 60; Glucose Random 122 mg/dL (60-115); HDL Cholesterol 34 mg/dL; LDL Cholesterol Calculated 100 mg/dl; Potassium 4.2 mmol/L (3.3-5.1); Sodium 140 mmol/L (135-145); Total Protein 6.5 g/dL (6.5-8.0); Triglycerides 91 mg/dL
[2022-12-10 08:13] LABS: Insulin 10 uU/mL (2-29); TSH reflex Free T4 2.61 uIU/mL (0.32-4.0)
[2022-12-12 10:59] VITALS: BMI 38.9
--- NOTE | 2022-12-15 00:18 | MHC.SHP ---
Pre-Procedural Eval Section A Date of Service: 12/15/22 The patient is an INPATIENT: Yes The History & Physical has been completed within 30 days and I have reviewed it.: Yes Section B Chief Complaint: morbid obesity Relevant Family History (Specify if Yes): No Relevant Social History: None Present Medications: None Medical History: No relevant PMH History of Previous Operations: No relevant previous surgery Allergies: Allergies Allergy/AdvReac Type Severity Reaction Status Date / Time shellfish derived Allergy Severe HIVES/SWELL Verified 12/05/22 09:38 [SHELLFISH DERIVED] ING Fruits Allergy Intermediate hives/swell Uncoded 12/12/22 10:14 ing Raw fruits Allergy Intermediate itching, Uncoded 12/12/22 10:14 rhinitis Environmental Allergy Unknown unknown Uncoded 12/05/22 09:38 Review of Systems Sugical H&P ROS: Negative: Constitution, Cardiovascular, Respiratory, Neurological, Psychiatric, Hem-Onc, Allergic/Immunologic, Gastrointestinal, Genitourinary, Musculoskeletal, Integumentary, Endocrine and Eyes/Ears/Nose/Throat Exam Surgical H&P Exam: Normal: HEENT, Normal: Heart, Normal: Lungs, Normal: Extremities, Normal: Abdomen, Normal: Skin and Normal: Neurological Plan Diagnosis/Plan: Unchanged I have reviewed the history and physical and performed a pertinent physical examination on my patient. No changes have occurred unless specified. Time Spent With Patient Time: Total time managing care of this patient today ____ minutes.
[2022-12-19 13:22] LABS: COVID-19 Test Negative (Negative); IDNOW Serial# BCCEAD1C
[2022-12-20] VITALS (17 sets, daily range): BP systolic 108–176; BP diastolic 62–90; PULSE 58–86; RESP 9–18; TEMP 36.3–36.8; O2SAT 94–100
--- NOTE | 2022-12-20 08:22 | PHA.MEDREC ---
Pharmacy Consult ? Medication Reconciliation Pharmacy has completed the medication reconciliation. Reviewed med rec done by nursing
[2022-12-20] MEDS: Lactated Ringers 1,000 ML 50 ML IVCONT (08:27)
[2022-12-20] MEDS: Lactated Ringers 1,000 ML 999 ML IV (08:27)
[2022-12-20 08:39] LABS: Glucose, Whole Blood 80 mg/dL (60-115)
--- NOTE | 2022-12-20 09:15 | HO.ANESPROP2 ---
HPI - Anesthesia Eval Consult details Narrative: 47 yo female patient for EGD, Sleeve gastrectomy, possible diaphragmatic hernia repair, possible ventral hernia repair, possible open PMFSH Active Problems Active Problems: All Active Problems (Updated 12/12/22 @ 11:03 by Noemí Gregg RN) Encounter for general adult medical examination with abnormal findings (Acute) Asthma, moderate (Acute) Encounter for annual routine gynecological examination (Acute) Heavy menstrual bleeding (Acute) Morbid obesity with BMI of 40.0-44.9, adult (Acute) Internal derangement of left knee (Acute) Asthma exacerbation (Acute) Tear of medial meniscus of left knee (Acute) Vitamin D deficiency (Acute) Vitamin B12 deficiency (Acute) Lipid disorder (Acute) Adjustment disorder, unspecified (Acute) DJD (degenerative joint disease) (Acute) GERD (gastroesophageal reflux disease) (Acute) Morbid obesity (Acute) Diabetes 1.5, managed as type 2 (Acute) Environmental allergies (Acute) Anxiety, generalized (Acute) Denies HANSA. Not tested. Snores Past Medical History Medical History Anxiety, generalized Asthma COVID-19 vaccine series completed Diabetes 1.5, managed as type 2 DJD (degenerative joint disease) Environmental allergies GERD (gastroesophageal reflux disease) History of anesthesia reaction History of COVID-19 Morbid obesity Obesity Family History Family History Family/Other HTN (hypertension) Depression Type 2 diabetes mellitus Mother Asthma Arthritis Maternal Grandfather No problems noted. Maternal Grandmother No problems noted. Paternal Grandfather No problems noted. Paternal Grandmother No problems noted. Brother No problems noted. Brother No problems noted. Daughter No problems noted. Sister No problems noted. Sister Mental health disorder Sister No problems noted. Sister No problems noted. Son No problems noted. Son No problems noted. Family history of problems with anesthesia: No Surgical History Surgical History History of arthroscopy of right knee History of bilateral tubal ligation History of breast biopsy History of section History of wisdom tooth extraction Hx of knee surgery Status post breast reduction History of Problems with Anesthesia: No Social History Social History Household Members: Children Household Members Other:: children & brother Housing: House Are you a primary customer care professional to a significant other at home: No Do you presently have visiting nurse or other home services: No Alcohol intake: never Patient Tobacco Use Status: Never used Tobacco e-Cigarette/Vaping Use: Never Used Use of substances other than those prescribed or required for medical reasons: No Have you been hit, kicked, punched, or otherwise hurt by someone within the past year? 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 Sexual orientation: Straight/Heterosexual Gender identity: Female Cognitive needs: No Hearing needs: No Vision needs: Yes Meds Allergies Allergy/AdvReac Type Severity Reaction Status Date / Time shellfish derived Allergy Severe HIVES/SWELL Verified 12/20/22 09:32 [SHELLFISH DERIVED] ING Fruits Allergy Intermediate hives/swell Uncoded 12/20/22 09:32 ing Raw fruits Allergy Intermediate itching, Uncoded 12/20/22 09:32 rhinitis Environmental Allergy Unknown unknown Uncoded 12/20/22 09:32 Active Medications: Current Medications Lactated Ringer's (Lr) 1,000 mls @ 999 mls/hr IV .Q1H1M [facility] Stop: 12/20/22 10:00 Last Admin: 12/20/22 08:27 Dose: 999 mls/hr Lactated Ringer's (Lr) 1,000 mls @ 50 mls/hr IVCONT .Q20H [facility] Last Admin: 12/20/22 08:27 Dose: 50 mls/hr Exam Exam Date and Time: December 20, 2022 0915 Height,Weight and Vital Signs: Height 5 ft 1 in Weight 93.44 kg Last Vital Signs Temp 98.1 F 12/20/22 08:24 Pulse 59 12/20/22 08:24 Resp 18 12/20/22 08:24 BP 108/62 12/20/22 08:24 Pulse Ox 99 12/20/22 08:24 O2 Del Method 12/20/22 08:24 Pertinent Lab Results Pertinent Lab Results: Laboratory Tests 12/10/22 12/10/22 12/10/22 06:30 06:33 06:33 WBC 5.6 RBC 4.41 Hgb 11.9 L Hct 37.6 MCV 85.3 MCH 27.0 MCHC 31.6 RDW 13.2 Plt Count 315 MPV 10.6 Immature Gran % (Auto) 0.2 Neut % (Auto) 56.6 Lymph % (Auto) 30.3 [place] % (Auto) 8.6 Eos % (Auto) 3.0 Baso % (Auto) 1.3 Lymph # (Auto) 1.7 [place] # (Auto) 0.5 Eos # (Auto) 0.2 Baso # (Auto) 0.1 Abs Immat Gran (auto) 0.01 Absolute Neuts (auto) 3.2 Absolute Nucleated RBC 0.000 Nucleated RBC % (auto) 0.0 PT 11.2 INR 1.0 APTT 33.9 Sodium Potassium Chloride Carbon Dioxide Anion Gap BUN Creatinine Estim Creat Clear Calc Estimated GFR POC Glucose Random Glucose Estimat Average Glucose Hemoglobin A1c % Insulin Level Calcium Total Bilirubin AST ALT Alkaline Phosphatase C-Reactive Protein Total Protein Albumin Triglycerides Cholesterol LDL Cholesterol, Calc HDL Cholesterol TSH COVID-19 (LYNDA) COVID-19 Clin Com Blood Type O Positive Antibody Screen NEGATIVE 12/10/22 12/10/22 12/19/22 06:33 06:33 12:50 WBC RBC Hgb Hct MCV MCH MCHC RDW Plt Count MPV Immature Gran % (Auto) Neut % (Auto) Lymph % (Auto) [place] % (Auto) Eos % (Auto) Baso % (Auto) Lymph # (Auto) [place] # (Auto) Eos # (Auto) Baso # (Auto) Abs Immat Gran (auto) Absolute Neuts (auto) Absolute Nucleated RBC Nucleated RBC % (auto) PT INR APTT Sodium 140 Potassium 4.2 Chloride 107 Carbon Dioxide 25 Anion Gap 12 BUN 10 Creatinine 0.72 Estim Creat Clear Calc TNP Estimated GFR > 60 POC Glucose Random Glucose 122 H Estimat Average Glucose 137 Hemoglobin A1c % 6.4 Insulin Level 10 Calcium 8.9 Total Bilirubin 0.4 AST 13 ALT 10 Alkaline Phosphatase 85 C-Reactive Protein 0.17 Total Protein 6.5 Albumin 4.0 Triglycerides 91 Cholesterol 152 LDL Cholesterol, Calc 100 HDL Cholesterol 34 TSH 2.61 COVID-19 (LYNDA) Negative COVID-19 Clin Com See Note Blood Type Antibody Screen 12/20/22 08:30 WBC RBC Hgb Hct MCV MCH MCHC RDW Plt Count MPV Immature Gran % (Auto) Neut % (Auto) Lymph % (Auto) [place] % (Auto) Eos % (Auto) Baso % (Auto) Lymph # (Auto) [place] # (Auto) Eos # (Auto) Baso # (Auto) Abs Immat Gran (auto) Absolute Neuts (auto) Absolute Nucleated RBC Nucleated RBC % (auto) PT INR APTT Sodium Potassium Chloride Carbon Dioxide Anion Gap BUN Creatinine Estim Creat Clear Calc Estimated GFR POC Glucose 80 Random Glucose Estimat Average Glucose Hemoglobin A1c % Insulin Level Calcium Total Bilirubin AST ALT Alkaline Phosphatase C-Reactive Protein Total Protein Albumin Triglycerides Cholesterol LDL Cholesterol, Calc HDL Cholesterol TSH COVID-19 (LYNDA) COVID-19 Clin Com Blood Type Antibody Screen Airway Mallampati Class: II TM Dist: >3cm Neck ROM: Full Loose/Missing/Broken Teeth: No (Denies broken, loose, missing teeth) Heart: RRR Lungs: CTAB Assessment and Plan Assessment Anesthesia Assessment: Anesthesia Plan Discussed and Chart Reviewed Final Anesthetic Review Family History of Problems with Anesthesia: No History of Problems with Anesthesia: No NPO: Yes ASA Class: III Final Preanesthetic Review: No Changes in Pt Med Stat, Meds/Allgs Chart Reviewed, Consent Obtained/Reviewed and Anes Risks/Benef Reviewed Patient Risk: Intermediate Procedure Risk: Intermediate Assessment/Block/Sedation in SS: Assess/Block/Sedation-SS Anesthetic Plan Anesthetic Plan: GA Disposition: Standard PACU and Inp. Admit - Standard Bed
--- NOTE | 2022-12-20 10:25 | P.BOP_ITS ---
Brief Operative Note Date of Service: 12/20/22 Pre-op diagnosis: Severe obesity with comorbidities (see below) Post-op diagnosis: same Procedure: INITIAL PATIENT BMI ON PRESENTATION AT OUR OFFICE: 43.3 kg/m2 LAST BMI BEFORE SURGERY: 39 kg/m2 COMORBIDITIES: non-insulin dependent diabetes, asthma, GERD, knee pain, liver steatosis ?The patient presented to the Weight Management Program with significant obesity that was negatively impacting the patient's comorbidities as listed above.? The program is a phased program with a special focus on preoperative medical weight management to promote substantial weight loss and prepare the patients for the second phase of the program: bariatric surgery. The patient participated in an intensive weekly lifestyle ?intervention and exercise program during which the patient ?has lost between the initial office visit and the last preoperative visit 22.6 lbs, or 9.86% of initial actual body weight. It was deemed appropriate for the patient to now have bariatric surgery. In light of the current Covid-19 pandemic and the well documented strong association of obesity and increased risk of worse outcomes if infected with Covid-19 (REFERENCES: https://pubmed.ncbi.nlm.nih.gov/49697196/ ,? https://pubmed.ncbi.nlm.nih.gov/14898288/ ), any delay in undergoing bariatric surgery may lead to the patient's worsening health condition and increased?risk of more severe Covid-19 disease if infected. In addition a recent?study from [facility] published in [facility] on 11/13/2021 ([email or web address]) found that, among patients with obesity, substantial weight loss achieved with surgery was associated with improved outcomes of COVID-19 infection. The findings suggest that obesity can be a modifiable risk factor for the severity of COVID-19 infection. In addition, the patient met the BMI-criteria for bariatric surgery based on the BMI on initial presentation. The patient should not be penalized for achieving such weight loss because ?it is not sustainable long-term without surgical intervention and it was achieved in preparation for bariatric surgery ?under my direction and based on my published research ([email or web address]).[email or web address] and? https://www.soard.org/article/[email or web address](73)48780-X/pdf ) ?that a 10% preope rative weight loss improves long-term weight loss after surgery and reduces perioperative complications.? Insurance carriers such as [facility] have endorsed my recommendations ?and have included in their policies criteria to include a 10% preoperative weight loss requirement. PROCEDURE: Esophago-gastroscopy, laparoscopic sleeve gastrectomy and laparoscopic gastropexy INDICATIONS: This is a 47 year-old female who was electively scheduled for laparoscopic, possibly open sleeve gastrectomy. The risks and complications of the procedure were discussed with the patient in advance, particularly the possi bility of ; pulmonary embolism; staple line leak; bleeding; GERD; cardiac, pulmonary, or renal complications; as well as long-term problems such as insufficient weight loss, vitamin deficiency, strictures, or ulcers. The patient understood all the risks, and was in agreement to proceed with surgery. DESCRIPTION OF PROCEDURE: After informed consent was obtained from the patient, the patient was given preoperative antibiotics, and was transferred to the operating room. After successful induction of general anesthesia, pneumatic compression devices were placed on both lower extremities. An upper endoscopy was performed next. The oropharynx and esophagus appeared to be within normal limits. There was no diaphragmatic hernia present consistent with the findings of the preoperative upper GI. The stomach was entered. Then after all fluid and air were suctioned and the stomach was fully decompressed, the scope was withdrawn and secured in the mid esophagus. The patient was then prepped and draped in the usual sterile manner, and abdominal access was established at the right upper quadrant with the Natacha technique. A 12 mm blunt port was inserted, and the abdomen was insufflated with CO2 to a pressure of 15 mmHg. Under direct visualization, additional ports were placed, specifically two 5 mm Versi-step ports to the left upper quadrant, and a 5 mm Versi-Step port to the right upper quadrant. 1% lidocaine plain was used to infiltrate all port sites as well as all fascia defects. Using the EndoClose suture passer device, I placed a #1 Polysorb tie across the falciform ligament in order to retract it up against the abdominal wall and prevent injury of the ligament with our instruments during the procedure. Following that, the patient was placed in a steep reverse Trendelenburg position. An additional 5 mm port was placed to the right flank for the Mediflex retractor that was used to retract the left lobe of the liver. The gastro-esophageal fat pad was opened with the ultrasonic device (Thunderbeat, Olympus) and the anterior esophagus and hiatus were exposed. The angle of His was opened with the ultrasonic device the fundus of the stomach from any diaphragmatic and splenic attachments. I then opened the gastrocolic ligament between the transverse colon and the greater curvature of the stomach with the ultrasonic device to enter the lesser sac and facilitate the ligation of the short gastric vessels. I started at a mid-point along the greater curvature and using the Thunderbeat, all short gastric vessels were divided all the way to the angle of His until the left louis was completely dissected at its entirety. I then divided the gastro-colic ligament distally to a distance of about 3-4 cm proximal to the pylorus.? The stomach was then divided transversely with one Endo BELEN-45 purple, two BELEN- 45 orange loads and three BELEN-60 articulating orange loads using the AEON stapler and loads. Every effort was made that the gastric sleeve had a tubular shape and an even caliber throughout. Once the sleeve resection was completed, the staple line of the gastric sleeve was reinforced with Hemoclips. The resected stomach was retrieved without difficulty from the Natacha port. A gastropexy was then performed in order to prevent postoperative GERD and partial gastric volvulus. Several interrupted 2.0 Surgidac sutures were placed between the sleeve's staple line and the previously divided greater omentum and gastro-colic ligament using the Endo-Stitch device. ?An upper endoscopy was performed. There was no narrowing at the GE junction. The scope was easily advanced all the way to the pylorus which was clearly visualized. There was no narrowing anywhere and the sleeve's caliber was even throughout. The sleeve's staple line was inspected and there was no evidence of ischemia, bleeding or dehiscence. At that point the gastroscope was withdrawn from the patient?s mouth while we were decompressing the bowel and the stomach from any remaining air. I looked into the lesser sac to see how the sleeve was situating and it was situating well. There was no bleeding from the staple line, spleen, or short gastric vessels. The Mediflex retractor was removed, and the undersurface of the liver was inspected and there was no bleeding. The patient was placed in supine position. I closed the fascial defect of the 12 mm port site with a figure of eight #1 Polysorb suture. Then 30cc Ropivacaine plain with 10 mg of Dexamethasone were used to infiltrate the fascial closure as well as all skin incisions. A total of 7ml Zynrelef was applied in the Natacha wound. At this point, the abdomen was deflated, all ports were removed under direct vision, and no bleeding was noted from any of the port sites. The skin incisions were irrigated with saline and were closed with 4-0 absorbable monofilament sutures. Steri-Strips and OpSites were used to cover all incisions. The patient was extubated and was transferred in stable condition to the recovery room for further care. I was present and performed all ortiz parts of the procedure. Mr Murrieta was the wheelchair van operator first responder. There were no residents to assist with this case. Holland Hernandez MD, PhD, FACS Surgeon: Hernán Hernandez MD Anesthesia: GETA, local and other (TAP block and 7ml Zynrelef) Was an Racing Mechanic used for this Procedure?: No Racing Mechanic: Rosalino Murrieta Estimated blood loss (mL): 10 IV fluids (mL): 2,800 Urine output (mL): 0 (No Rivas to record) Pathology: other (Stomach) Condition: stable Disposition: PACU
--- NOTE | 2022-12-20 10:29 | PM.PNGS ---
Subjective Subjective Date of Service: 12/21/22 Interval history: Patient has mild incisional pain, but was able to ambulate and use the incentive spirometer. She is tolerating phase 1 bariatric diet Physical Exam Vital Signs: Vital Signs: Last Vital Signs Temp 98.1 F 12/20/22 08:24 Pulse 59 12/20/22 08:24 Resp 18 12/20/22 08:24 BP 108/62 12/20/22 08:24 Pulse Ox 99 12/20/22 08:24 O2 Del Method 12/20/22 08:24 BMI result Body Mass Index 38.9 GI: Inspection: Yes normal to inspection, Yes incision (clean, dry and intact) and Yes obesity Palpation (GI): Soft to palpation Extrem: Right lower extremity: normal to inspection (no calf tenderness) Left lower extremity: normal to inspection (no calf tenderness) Objective Data Active Medications Fentanyl (Fentanyl Citrate/Pf 100 Mcg/2 Ml Vial) 25 mcg IVPUSH Q5M PRN; Protocol PRN Reason: Pain, Moderate (Pain Scale 4-6 Hydromorphone HCl (Hydromorphone Hcl 0.5 Mg/0.5 Ml Syringe) 0.25 mg IVPUSH Q5M PRN; Protocol PRN Reason: Pain, Severe (Pain Scale 7-10) Lactated Ringer's (Lr) 1,000 mls @ 50 mls/hr IVCONT .Q20H GRANT Last Admin: 12/20/22 08:27 Dose: 50 mls/hr Documented By: UJRGEN Promethazine HCl 6.25 mg/ (Sodium Chloride) 50.25 mls @ 201 mls/hr IV ONCE PRN PRN Reason: Nausea and Vomiting Ondansetron HCl (Ondansetron Hcl 4 Mg/2 Ml Vial) 4 mg IVPUSH ONCE PRN PRN Reason: Nausea and Vomiting Labs 12/10/22 06:33 12/10/22 06:33 Labs: Laboratory Results - last 24 hr 12/19/22 12/20/22 12:50 08:30 POC Glucose 80 COVID-19 (LYNDA) Negative COVID-19 Clin Com See Note Procedures Date of Service Date of Service: 12/21/22 Progress Note: A&P Assessment and plan (1) Obesity: Status: Acute Assessment and Plan: s/p laparoscopic sleeve gastrectomy and gastropexy Doing well Check am labs. If OK, will discharge home (2) BMI 39.0-39.9,adult: Status: Acute (3) Asthma exacerbation: Status: Acute (4) GERD (gastroesophageal reflux disease): Status: Acute (5) Anxiety, generalized: Status: Acute (6) DJD (degenerative joint disease): Status: Acute (7) Steatosis, liver: Status: Acute (8) Status post sleeve gastrectomy: Status: Acute Time Spent With Patient Time: Total time managing care of this patient today ____ minutes. Quality Stroke Does the patient have a stroke diagnosis?: No VTE Prior VTE?: No VTE Risk Level:: Surgical - moderate VTE Device Contraindication: N/A - Device Ordered VTE Drug Contraindication: Treatment Not Indicated
--- NOTE | 2022-12-20 13:29 | PM.DS ---
DS: Providers Provider Date of Service: 12/21/22 Date of admission: 12/20/22 08:00 Primary care physician: Cruz Walker MD DS: Diagnosis Discharge Diagnosis (1) Obesity: Status: Acute (2) BMI 39.0-39.9,adult: Status: Acute (3) Asthma exacerbation: Status: Acute (4) GERD (gastroesophageal reflux disease): Status: Acute (5) Anxiety, generalized: Status: Acute (6) DJD (degenerative joint disease): Status: Acute (7) Steatosis, liver: Status: Acute (8) Status post sleeve gastrectomy: Status: Acute DS: Summary Hospital Course Hospital Course: ADMITTING DIAGNOSIS: obesity, asthma, GERD, DM, anxiety ? DISCHARGE DIAGNOSIS: same, s/p laparoscopic sleeve gastrectomy ? PAST SURGICAL HISTORY: tubal ligation, breast reduction, cesarian section ? PROCEDURE: upper endoscopy, laparoscopic sleeve gastrectomy ? DISCHARGE SUMMARY: ? History of Present Illness: ? The patient is a?47 year-old woman with a BMI of?43.3 kg/m2 and associated co-morbidities as described above. The patient had extensive work-up,lost?23.2 lbs preoperatively and was electively scheduled for laparoscopic, possible open sleeve gastrectomy and gastropexy. Risks and complications of the surgery were discussed with the patient in advance, particularly the possibility of , pulmonary embolism, anastomotic leak, bleeding, bowel injury, GERD, cardiac, renal or pulmonary complications. The patient understood all the risks and was in agreement with the surgical plan. ? Hospital Course: ? The patient underwent an uneventful laparoscopic sleeve gastrectomy with gastropexy on the day of admission. Postoperatively, the patient was transferred to the surgical floor. The patient received IV Acetaminophen and IV dilaudid for pain control. Patient was started on bariatric phase 1 diet POD #0. On postoperative day one, the patient was feeling well without nausea, vomiting, fevers, or tachycardia. The patient had some mild incisional pain and the abdomen was soft. ? On the morning of postoperative day one, the patient was continued on 1 ounce of water or ice every half hour. During the day, the patient did fairly well, having some incisional pain, but able to ambulate adequately and to tolerate liquids well. ? Since the patient is doing well, we decided that the patient was ready to be discharged. The patient was given instructions to follow-up with me next week and to call my office for any fever over 101, persistent abdominal pain, nausea, vomiting, GERD, symptoms of DVT such as calf tenderness, or leg swelling, or pulmonary embolism such as chest pain or shortness of breath. The patient was also instructed to drink 40-60 ounces of liquids per day using the 1-ounce cups. The patient had been given prescriptions for Tylenol for pain, Zofran prn for nausea, and pantoprazole and carafate previously. The patient was encouraged to ambulate and use the incentive spirometer. The patient was allowed to shower, but no baths, and encouraged to stay active at home. All of these instructions were given to the patient personally. All questions were answered and the patient understood all instructions, the instructions were also given to the patient in print. Time Spent with Patient Time attestation: Total time managing care of this patient today ____ minutes. Discharge coordination time: Less than 30 minutes Quality: Safe Use of Opioids Does Pt have an Active Cancer Diagnosis on the Problem List?: No Quality: Stroke Does the patient have a stroke diagnosis?: No Physical Exam Vital Signs: Vital Signs: Last Vital Signs Temp 98.1 F 12/20/22 08:24 Pulse 59 12/20/22 08:24 Resp 18 12/20/22 08:24 BP 108/62 12/20/22 08:24 Pulse Ox 99 12/20/22 08:24 O2 Del Method 12/20/22 08:24 BMI result Body Mass Index 38.9 DS: Data Data Completed and Pending Pending studies at discharge: Pending at discharge 12/20/22 12:17 Surgical [PTH] Routine Labs on day of discharge: Laboratory Results - last 24 hr 12/20/22 08:30 POC Glucose 80 Discharge Plan Discharge Anticipated Discharge Date/Time: 12/21/22 10:00 Patient Disposition: Home, Self-Care Discharge Diagnosis: Severe obesity Referrals: Cruz Walker MD [Primary Care Provider] - 1 Week Discharge Medications: Continued All Day Allergy (cetirizine) 10 mg capsule 10 mg PO DAILY 90 Days Qty: 90 1RF albuterol sulfate [ProAir HFA] 90 mcg/actuation HFA aerosol inhaler 2 puff inhalation Q4-6H PRN (Reason: bronchospasm) 30 Days Qty: 18 5RF pantoprazole 40 mg tablet,delayed release (DR/EC) 40 mg PO DAILY Qty: 30 2RF sucralfate 100 mg/mL suspension 10 ml PO BID Qty: 400 2RF ondansetron HCl 4 mg tablet 4 mg PO Q6H PRN (Reason: nausea and vomiting) Qty: 20 0RF Rx Instructions: Only use if you have nausea as needed Discontinued cholecalciferol (vitamin D3) 125 mcg (5,000 unit) capsule 125 mcg PO DAILY Qty: 30 2RF mecobalamin (vitamin B12) 1,000 mcg tablet,disintegrating 1,000 mcg sublingual DAILY Qty: 30 1RF Rx Instructions: place tablet under tongue and allow to dissolve for at least30 secs before swallowing glipizide 2.5 mg tablet extended release 24hr 2.5 mg PO DAILY 90 Days Qty: 90 0RF polyethylene glycol 3350 [Miralax] 17 gram powder in packet 17 g PO DAILY Qty: 14 0RF Rx Instructions: Mix each packet with 8oz of water and do 7 packets on 12/18/22 and another 7 packets on 12/19/22 Discharge Orders: Discharge Order (Routine); Ordered 12/21/22 Ordered By: Hernán Hernandez Activity on Discharge: No heavy lifting Stand Alone Forms: Patient Portal Discharge page Care Plan Goals: weight loss Health Concerns: obesity Plan of Treatment: No tub baths, sex or returning to work until discussed at first post op appointment. No exercise, alcohol, tobacco or illegal drug use. Continue to use incentive spirometer hourly while awake. Walk in home for 5- 10 minutes every 2 hours during the first week. Follow all instructions in the bariatric handbook and call with any questions.Discharge Instructions 1. Please call your doctor or come back to the emergency room should any new symptoms arise. 2. You will receive a courtesy call from [facility] 24-48 hours after discharge. 3. Activity: abstain from alcohol, practice limited stair climbing, no bending, no driving, no exercise, no illicit substances, no lifting, no sex, no tub bath, no work. 4. Diet: continue as discussed with Dr. Hernandez. 5. Dressing Change/Wound Care: Your incision is covered by clear bandages and guaze underneath. If the area is tender, you may apply an ice pack for short intervals (no more than 20 minutes on, followed by at least 20 minutes off). Do not apply heat. Do not use creams, lotions, or topical antibiotics unless instructed to do so by your surgeon. These can cause infection or allergic reaction. 6. Call your doctor if: - Your temperature exceeds 101.5 F - You experience excessive pain or swelling - You have an unexpected reaction to medication - You have excessive bleeding - You experience continued vomiting/nausea - Your incision begins to separate - Your incision shows signs of infection such as increased redness, swelling, excessive pain, heat, or drainage (light blood or clear fluid is normal) 7. General instructions: No lifting greater than 5 lbs for the next 4 weeks[address] within 24 hours of taking narcotic pain medications. If you do not move your bowels in the next 2 days, please take milk of magnesia over the counter. Please follow the post op diet and do not advance your diet until you are seen in the office in about 2 weeks. Please walk around your home every hour or two to prevent blood clots from forming in your legs. You do not need to wake from sleeping to walk. Please sleep in a bed or couch to prevent kinking at the hips and knees. Please take your incentive spirometer (your lung hoop bending machine operator) home with you and use it for the next few days to prevent pneumonias. You may shower, no hot tubs, baths or swimming pools. Please call the office with any questions or concerns such as increasing abdominal pain, fever, chills, shortness of breath, chest pain, leg pain or swelling, or redness or drainage from your incisions. Please stay on stage 3 diet which includes sugar free clear liquids such as ice pops and jello and broth and crystal light. Avoid all carbonation. Please drink 3 protein shakes with at least 25-30 grams of protein daily or 3 of the Celebrate 4:1 shakes which can be purchased in our office. The Celebrate shakes have all of the bariatric vitamins you need if you consume these shakes. If you are drinking other protein shakes, you will need to purchase the Celebrate multivitamins and calcium that we provide in the office (they will provide all the vitamins you need). Please make sure you are consuming at least 40-60 ounces of water in addition to your 3 protein shakes daily. Do not hesitate to contact the office with any questions at . The patient's medical history has been reviewed and they are considered low risk for post op DVT and therefore DVT prophylaxis is not considered necessary. Travel after surgery was reviewed. The patient has not disclosed any travel plans during the first 30 days after surgery and they have been advised that within the first 30 days after surgery any bus, plane, train or car travel over 2 hours in duration is contraindicated due to the possibility of developing blood clots from immobility. Any travel, needs to include periods of ambulation of 10 minutes in duration every 2 hours.? The patient was instructed to discuss any plans for travel during this period with their bariatric surgeon. Assessment: stable s/p laparoscopic sleeve gastrectomy
[2022-12-20] MEDS: Famotidine/PF 20 MG/2 ML VIAL IVPUSH ×2 (14:00→22:08)
[2022-12-20 14:17] LABS: Hematocrit 37.3 % (37.0-47.0); Hemoglobin 12.1 g/dl (12.0-16.0)
[2022-12-20] MEDS: ondansetron HCL 4 MG/2 ML VIAL IVPUSH (14:24)
[2022-12-20 14:35] LABS: Anion Gap 11 (12-20); Blood Urea Nitrogen 8 mg/dL (9-16); Calcium 8.4 mg/dL (8.4-10.2); Carbon Dioxide 27 mmol/L (22-29); Chloride 105 mmol/L (96-108); Creatinine Clr Calc Pharmacy 107.4; Estimated Glomerular Filt Rate > 60; Glucose Random 115 mg/dL (60-115); Potassium 3.7 mmol/L (3.3-5.1); Sodium 139 mmol/L (135-145)
[2022-12-20] MEDS: HYDROmorphone HCl 0.5 MG/0.5 ML SYRINGE 0.25 MG IVPUSH (15:07)
[2022-12-20] MEDS: Lactated Ringers 1,000 ML 125 ML IVCONT ×2 (15:46→22:07)
[2022-12-20] MEDS: ceFAZolin Sodium/Dextrose,Iso 2 GM/50 ML PIGGYBACK IV (17:00)
[2022-12-20 17:31] LABS: Glucose, Whole Blood 107 mg/dL (60-115)
[2022-12-20] MEDS: Acetaminophen 1,000 MG/100 ML PIGGYBACK 16.7 MG IV ×2 (17:43→22:08)
[2022-12-20 20:15] LABS: Glucose, Whole Blood 146 mg/dL (60-115)
[2022-12-20] MEDS: 0.9 % Sodium Chloride Flush 3 ML SYRINGE IVFLUSH (22:08)
[2022-12-21 00:16] LABS: Glucose, Whole Blood 114 mg/dL (60-115)
[2022-12-21] MEDS: ondansetron HCL 4 MG/2 ML VIAL IVPUSH ×2 (00:26→07:24)
[2022-12-21 03:39] VITALS: BP 153/82; PULSE 62; RESP 18; TEMP 36.7; O2SAT 97
[2022-12-21] MEDS: Acetaminophen 1,000 MG/100 ML PIGGYBACK 16.7 MG IV (03:55)
[2022-12-21 04:35] LABS: Glucose, Whole Blood 101 mg/dL (60-115)
[2022-12-21] MEDS: Lactated Ringers 1,000 ML 125 ML IVCONT (05:31)
[2022-12-21 06:03] LABS: MANUAL DIFF FLAG NO
[2022-12-21 06:07] LABS: Basophils Percent Auto 0.4 % (0-2); Hematocrit 35.6 % (37.0-47.0); Hemoglobin 11.4 g/dl (12.0-16.0); Imm Gran Abs Auto 0.03 X10*3/uL (0.00-0.03); Imm Gran Pct Auto 0.4 % (0.0-0.4); Lymphocytes Absolute Auto 1.1 X10*3/uL (1.2-4.9); Mean Corpuscular Hemoglobin 26.6 pg (27.0-33.0); Monocytes Absolute Auto 0.7 X10*3/uL (0.1-1.2); Monocytes Percent Auto 8.7 % (2-11); Neutrophils Absolute Auto 5.7 x10*3/uL (2.0-8.3); Neutrophils Percent Auto 76.5 % (45-73); Platelet Count 305 X10*3/uL (160-400); Red Blood Count 4.29 X10*6/uL (4.20-5.50); Red Cell Distribution Width 13.1 % (11.0-16.0); White Blood Count 7.5 X10*3/uL (4.8-10.8)
[2022-12-21 06:31] LABS: Anion Gap 17 (12-20); Blood Urea Nitrogen 7 mg/dL (9-16); Calcium 8.5 mg/dL (8.4-10.2); Carbon Dioxide 21 mmol/L (22-29); Chloride 105 mmol/L (96-108); Creatinine Clr Calc Pharmacy 119.4; Estimated Glomerular Filt Rate > 60; Glucose Random 92 mg/dL (60-115); Potassium 3.8 mmol/L (3.3-5.1); Sodium 139 mmol/L (135-145)
[2022-12-21] MEDS: Loratadine 10 MG TABLET PO (07:24)
[2022-12-21] MEDS: Famotidine/PF 20 MG/2 ML VIAL IVPUSH (07:24)
[2022-12-21 08:00] VITALS: BP 150/72; PULSE 79; RESP 18; TEMP 36.7; O2SAT 96
[2022-12-21 08:04] LABS: Glucose, Whole Blood 88 mg/dL (60-115)
--- NOTE | 2022-12-21 10:43 | MHC.CM.PN ---
EMR REVIEW, PT ADMITTED S/P LAP SLEEVE GASTRECTOMY, CM MET W/PT WHO REPORTS SHE LIVES W/HER BROTHER AND 3 CHILDREN, PT IS INDEP W/ALL CARE, DENIES USE OF DME/SERVICES. PT VERIFIES CHIDI LOGAN IS HER PCP, COVID VACC X3 AND DECLINES TO COMPLETE A HCP THIS ADMIT. D/C PLAN: HOME TODAY W/FOLLOW-UP NEXT WEEK, FAMILY FOR TRANSPORT
--- NOTE | 2022-12-21 12:23 | HO.POSTANES ---
Post Anesthesia Evaluation Post Anesthesia Evaluation Vital Signs: Vital Signs Temp Pulse Resp BP Pulse Ox O2 Del Method 12/21/22 08:00 98.0 F 79 18 150/72 H 96 Room Air 12/21/22 03:39 98.1 F 62 18 153/82 H 97 Room Air Anesthesia: General Endotracheal-GETA Mental Status: Awake Pain Control: Satisfactory Nausea/Vomiting: None Hydration: Adequate Anesthesia-Related Issues: No Anes. Related Issues
== END 2022-12-21 10:05 | disposition home or self-care (01) | DRG 403 ==
LOC: HO.SSSA 13:32 → HO.S3 16:35
PROVIDERS: Physician Assistant Surgical; Admitting Provider Surgery; PCP Internal Medicine; Visit Provider Surgery
PROC: 0DB64Z3 Excision of Stomach, Percutaneous Endoscopic Approach, Vertical (ICD-10-PCS; CPT 43845; principal; 2022-12-20 10:10)
DX: E66.01 Morbid (severe) obesity due to excess calories (principal); E13.9 Other specified diabetes mellitus without complications; K21.9 Gastro-esophageal reflux disease without esophagitis; Z98.51 Tubal ligation status; Z68.39 Body mass index [BMI] 39.0-39.9, adult; Z86.16 Personal history of COVID-19; Z79.899 Other long term (current) drug therapy
CPT/HCPCS: 36415; 80048; 80053; 80061; 82947; 83036; 83525; 84443; 85014; 85018; 85025; 85610; 85730; 86140; 86850; 86900; 86901; 87635; 88307; 88342; A4649; C9088; J0131; J0690; J1100; J1170; J1200; J2250; J2370; J2405; J2550; J2795; J3010

== ENCOUNTER → 2022-12-25 12:55 | Outpatient (BNVA) | payer OTHER, SELFPAY | PROVIDERS: PCP Internal Medicine; Visit Provider Physician Assistant Surgical | DX: Z13.89 Encounter for screening for other disorder (principal) ==

== ENCOUNTER → 2023-01-09 11:23 | Outpatient (BNVA) | payer OTHER, SELFPAY | PROVIDERS: PCP Internal Medicine; Visit Provider Physician Assistant Surgical | DX: E66.9 Obesity, unspecified (principal); Z68.36 Body mass index [BMI] 36.0-36.9, adult; Z98.84 Bariatric surgery status | CPT/HCPCS: 99212 ==

== ENCOUNTER → 2023-01-25 10:26 | Outpatient (BNVA) | payer OTHER, SELFPAY | PROVIDERS: PCP Internal Medicine; Referring Provider Internal Medicine; Visit Provider Physician Assistant Surgical | DX: E66.9 Obesity, unspecified (principal); Z68.35 Body mass index [BMI] 35.0-35.9, adult; Z90.3 Acquired absence of stomach [part of] | CPT/HCPCS: 99212 ==

== ENCOUNTER 2023-02-15 07:50 | Outpatient (REF) | payer MEDICAID, SELFPAY ==
--- NOTE | ~2023-02-15 | MM_ITS ---
EXAMINATION: MM SCREENING DIGITAL BREAST TOMOSYNTHESIS, BILATERAL CLINICAL INFORMATION: Screening. Asymptomatic. Reduction mammoplasty, 2016. The lifetime risk of breast cancer based on the Tyrer-Cuzick Model is 9%. COMPARISON: Mammography: 02/13/2022, 02/06/2022, 01/30/2021, 01/25/2020, 01/16/2019. TECHNIQUE: Digital breast tomosynthesis is performed in both the craniocaudal and mediolateral oblique views along with computer-aided detection (CAD). Synthesized 2D images are generated from the tomosynthesis. FINDINGS: There are scattered areas of fibroglandular density (ACR BI-RADS breast composition Category b). There are no significant masses, abnormal calcifications, or other abnormalities. Parenchymal pattern is similar to prior studies. There is no developing density or architectural abnormality. There is small circumscribed nodule posterior 8:00 right breast, decreased since 2019, possibly an intramammary node. The axilla and skin contours are unremarkable. No significant changes. MM/MM tomosynthesis screening BI IMPRESSION: No mammographic evidence of malignancy. ASSESSMENT: BI-RADS 2: Benign RECOMMENDATION: Routine annual mammography screening. This patient's information was entered into a reminder system with a target due date for their next mammogram.
== END 2023-02-15 07:51 | disposition home or self-care (01) ==
LOC: HO.MAMMO 07:50
PROVIDERS: PCP Internal Medicine; Visit Provider Internal Medicine
DX: Z12.31 Encounter for screening mammogram for malignant neoplasm of breast (principal)
CPT/HCPCS: 77063; 77067

== ENCOUNTER → 2023-02-22 11:19 | Outpatient (BNVA) | payer OTHER, SELFPAY | PROVIDERS: PCP Internal Medicine; Visit Provider Physician Assistant Surgical | DX: Z90.3 Acquired absence of stomach [part of] (principal) | CPT/HCPCS: 99212 ==

== ENCOUNTER → 2023-03-29 11:24 | Outpatient (BNVA) | payer OTHER, SELFPAY | PROVIDERS: PCP Internal Medicine; Referring Provider Internal Medicine; Visit Provider Physician Assistant Surgical | DX: E66.9 Obesity, unspecified (principal); Z90.3 Acquired absence of stomach [part of]; Z68.30 Body mass index [BMI] 30.0-30.9, adult | CPT/HCPCS: 99212 ==

== ENCOUNTER → 2023-05-10 10:50 | Outpatient (BNVA) | payer OTHER, SELFPAY | PROVIDERS: PCP Internal Medicine; Visit Provider Physician Assistant Surgical | DX: E66.9 Obesity, unspecified (principal); Z90.3 Acquired absence of stomach [part of]; Z68.31 Body mass index [BMI] 31.0-31.9, adult | CPT/HCPCS: 99212 ==

== ENCOUNTER 2023-10-04 07:51 | Outpatient (AMB) | payer OTHER, SELFPAY ==
--- NOTE | 2023-10-04 07:52 | A.OFFPC_ITS ---
Vital Signs 10/04/23 07:54 Height 5 ft 1 in Weight 157 lb BMI 29.7 BP 134/70 Blood Pressure Location Rt brachial Position Sitting Pulse 61 Pulse Source Pulse Oximeter Pulse Oximetry (%) 98 Oxygen Delivery Method Room Air Intake Visit Reasons: Annual PE Allergies shellfish derived [SHELLFISH DERIVED] Allergy (Severe, Verified 10/04/23 07:52) HIVES/SWELLING Fruits Allergy (Intermediate, Uncoded 10/04/23 07:52) hives/swelling Raw fruits Allergy (Intermediate, Uncoded 10/04/23 07:52) itching, rhinitis Environmental Allergy (Unknown, Uncoded 10/04/23 07:52) unknown Medication List - Last Reconciled 10/04/23 by Cruz Walker MD albuterol sulfate 90 mcg/actuation (ProAir HFA) 2 puffs inhalation Q4-6H PRN 30 days cetirizine (All Day Allergy (cetirizine)) 10 mg PO DAILY 90 days clotrimazole 1% 1 appl topical BID docusate sodium (Colace) 100 mg PO DAILY Tobacco use date assessed: 10/04/23 Dental Screening Dental Screen Date: 10/04/23 Did you have a dental visit in the last 12 months?: Yes Did you have a dental problem in the last 6 months where you did not have access to dental care?: No Was dental information given to patient?: Patient has dentist HPI Annual PE HPI Details Patient is a 48-year-old female came in for physical exam Mammogram was January of this year OBGYN appointment is coming up Patient had bariatric surgery and lost a lot of weight She is diabetic but hemoglobin A1c is stable since she has lost the weight she is taking no medication Seasonal asthma: Patient is requesting a refill on albuterol inhaler which I have sent Patient is also having lot of mood swings and is requesting medication She had pain on medication in the past but then she stopped taking it. I am prescribing lamotrigine for the patient We will book a telemedicine visit in 3 weeks to see how she is doing [facility] Medical History (Updated 10/04/23 @ 08:15 by Cruz Walker MD) Encounter for general adult medical examination with abnormal findings BMI 39.0-39.9,adult History of anesthesia reaction COVID-19 vaccine series completed History of COVID-19 DJD (degenerative joint disease) GERD (gastroesophageal reflux disease) Morbid obesity Asthma Obesity Tear of medial meniscus of left knee Asthma exacerbation Internal derangement of left knee Morbid obesity with BMI of 40.0-44.9, adult Encounter for annual routine gynecological examination Diabetes 1.5, managed as type 2 Environmental allergies Anxiety, generalized Surgical History Hx of knee surgery History of arthroscopy of right knee Status post breast reduction History of breast biopsy History of bilateral tubal ligation History of section History of wisdom tooth extraction Family History Family/Other HTN (hypertension) Depression Type 2 diabetes mellitus Mother Asthma Arthritis Maternal Grandfather No problems noted. Maternal Grandmother No problems noted. Paternal Grandfather No problems noted. Paternal Grandmother No problems noted. Brother No problems noted. Brother No problems noted. Daughter No problems noted. Sister No problems noted. Sister Mental health disorder Sister No problems noted. Sister No problems noted. Son No problems noted. Son No problems noted. 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 1. Little interest or pleasure in doing things: not at all 2. Feeling down, depressed, or hopeless: not at all 3. Trouble falling or staying asleep, or sleeping too much: not at all 4. Feeling tired or having little energy: several days 5. Poor appetite or overeating: not at all 6. Feeling bad about yourself - or that you are a failure or have let yourself or your family down: several days 7. Trouble concentrating on things, such as reading the newspaper or watching television: not at all 8. Moving or speaking so slowly that other people could have noticed. Or the opposite - being so fidgety or restless that you have been moving around a lot more than usual: not at all 9. Thoughts that you would be better off or of hurting yourself in some way: not at all Total score: 2 Depression Screening Interpretation: Negative Depression Screening Done: Yes [id number] - PHQ-9 Billing: Yes Source: Developed by Drs. Jovany Dunlap, Edna Soto, Andrew Ochoa and colleagues, with an educational laura from [employer]. Thrive Questionnaire Date Thrive assessed: 10/04/23 I am a: Patient What is your living situation today?: I have a steady place to live Within the past 12 months, did the food you bought not last and you didn't have the money to get more?: Never true Within the past 12 months, did you worry whether your food would run out before you got money to buy more?: Never true Do you have trouble paying for medicines?: No Do you have trouble getting transportation to medical appointments?: No Do you have trouble paying your heating and electricity bill?: No Do you have trouble taking care of your child, family member or friend?: No Do you have trouble with day-to-day activities such as bathing, preparing meals, shopping, managing finances, etc.?: No Are you currently unemployed and looking for a job?: No Are you interested in more education?: Yes Please select the resources that you would like help with: None Currently or been in a relationship where the following occur: no concerns reported ALEJANDRO-7 AMB Questionnaire ALEJANDRO-7 Date ALEJANDRO - 7 assessed: 10/04/23 Feeling nervous, anxious, or on edge: 1 = Several days Not being able to stop or control worryin = Several days Worrying too much about different things: 1 = Several days Trouble relaxin = Several days Being so restless that it is hard to sit still: 0 = Not at all Becoming easily annoyed or irritable: 1 = Several days Feeling afraid as if something awful might happen: 1 = Several days Total ALEJANDRO-7 score (0-4 normal; 5-9 mild; 10-14 moderate; 15-21 severe): 6 Source: Developed by Drs. Jovany Dunlap, Edna Soto, Andrew Ochoa and colleagues, with an educational laura from [employer]. ALEJANDRO-7 Assessment Billing ALEJANDRO-7 Assessment Tool: ALEJANDRO-7 Assessment [id number] Review of Systems Const Denies chills, Denies fever(s) and Denies headache(s) Eyes Denies blurry vision ENT Denies headache(s), Denies nasal discharge, Denies nasal obstruction, Denies odynophagia and Denies sinus pain Card Denies chest pain at rest and Denies chest pain with activity Resp Denies cough and Denies hemoptysis GI Denies diarrhea, Denies odynophagia, Denies vomiting and Denies hematemesis Reports as per HPI Musc Denies abnormal gait Skin/Breast Reports as per HPI Neuro Denies Neuro-related abnormal movements, Denies Abnormal speech present, Denies abnormal gait, Denies headache(s) and Denies Sensory deficit (Neuro) Psych Denies mood swings and Denies paranoia Endo Reports as per HPI Giovanny/Lymph Reports as per HPI Aller/Immun Reports as per HPI Physical exam (Primary Care) Vital Signs: Last Vital Signs Pulse 61 10/04/23 07:54 BP 134/70 10/04/23 07:54 Pulse Ox 98 10/04/23 07:54 Oxygen Delivery Method Room Air 10/04/23 07:54 BMI result Body Mass Index 29.7 Tobacco/Smoking Status: Tobacco use Status Tobacco use date assessed 10/04/23 10/04/23 07:56 Patient Tobacco Use Status Never used Tobacco 10/04/23 07:56 e-Cigarette/Vaping Use Never Used 10/04/23 07:56 PHQ-9: PHQ-9 Score PHQ-9: Total score 2 10/04/23 08:21 Depression Screening Interpretation: Negative Thrive Assessment: Date of Thrive Assessment Date Thrive assessed 10/04/23 10/04/23 07:58 Currently or been in a relationship where the following occur: no concerns reported Const General: cooperative, comfortable and no acute distress Orientation/consciousness: patient oriented x3 HENMT Head: Yes normocephalic and Yes atraumatic Eyes General: appearance normal, both eyes and all related structures Pupils: Equal, round and reactive pupils present EOM: EOMs intact bilaterally Neck Neck: Yes supple and No lymphadenopathy Thyroid: Thyroid normal Lymphatic: no lymphadenopathy noted Resp Effort & Inspection: normal respiratory effort and able to speak in complete sentences Auscultation: clear to auscultation bilaterally Cardio Heart sounds: S1 normal heart sound present and S2 normal heart sound present GI Palpation (GI): Soft to palpation and nontender Auscultation: normal bowel sounds General: Yes no CVA tenderness Back/Spine/Pelvis Back: no CVA tenderness Skin General skin exam: elasticity normal and turgor normal Neuro General: patient oriented x3 and gait normal Cranial nerves: Yes Equal, round and reactive pupils present Speech: No Abnormal speech present Sensory Exam: No Sensory deficit (Neuro) Coordination: tandem gait normal and Romberg test negative Extrem General: Yes normal exam except as noted and No edema Office Procedures Flu Questionnaire Does the patient have a severe egg allergy?: No Does the patient have severe life threatening allergies?: No Does the patient have a fever or illness today?: No Has the patient ever had Guillain-[place] Syndrome?: No Has the patient ever had any past reaction to a flu shot?: No Immunizations flu vacc [id number] 6mos up(PF) 60 mcg(15 mcgx4)/0.5 mL IM syringe Performing Provider: Cruz Walker MD Performing Location: [facility] Administered by: Sarika Garcia CMA on 10/04/23 08:21 Dose Route Admin Location Dispensed Lot Number Expiration Date NDC [employer] 0.5 mL IM Right Deltoid 0.5 mL [id number] 05/17/24 53311-085-22 Cardoc VIS Given Date VIS Provided VIS Publication Date 10/04/23 Single Vaccine 21 Eligibility Eligibility Date Funding Source Not [facility] Eligible 10/04/23 Private Assessment and Plan Assessment & Plan (1) Encounter for general adult medical examination with abnormal findings: Code(s): Z00.01 - Encounter for general adult medical examination with abnormal findings (2) Diabetes 1.5, managed as type 2: Comment: Diet-controlled Code(s): E13.9 - Other specified diabetes mellitus without complications (3) Intermittent asthma: Code(s): J45.20 - Mild intermittent asthma, uncomplicated (4) Status post sleeve gastrectomy: Code(s): Z90.3 - Acquired absence of stomach [part of] (5) Mood disorder: Code(s): F39 - Unspecified mood [affective] disorder Plan Patient is a 48-year-old female came in for physical exam Mammogram was January of this year OBGYN appointment is coming up Patient had bariatric surgery and lost a lot of weight She is diabetic but hemoglobin A1c is stable since she has lost the weight she is taking no medication Seasonal asthma: Patient is requesting a refill on albuterol inhaler which I have sent Patient is also having lot of mood swings and is requesting medication She had pain on medication in the past but then she stopped taking it. I am prescribing lamotrigine for the patient We will book a telemedicine visit in 3 weeks to see how she is doing Orders: Orders Influenza [id number] Immunization Today Z23 - Encounter for immunization Medications: New lamotrigine 25 mg PO DAILY 30 tabs 0RF 30 days Refilled albuterol sulfate 90 mcg/actuation (ProAir HFA) 2 puffs inhalation Q4-6H PRN 18 grams 5RF bronchospasm 30 days Coding Level of Care Code Est Pt Prev Care 40-64y(21180) Diagnoses Encounter for general adult medical examination with abnormal findings Z00.01 Diabetes 1.5, managed as type 2 E13.9 Intermittent asthma J45.20 Status post sleeve gastrectomy Z90.3 Mood disorder F39 Additional Codes ALEJANDRO-7 Assessment Billing - ALEJANDRO-7 Assessment Tool: ALEJANDRO-7 Assessment [id number] ([id number])
[2023-10-04 07:54] VITALS: BP 134/70; PULSE 61; O2SAT 98; BMI 29.7
== END 2023-10-04 08:28 | disposition home or self-care (01) ==
PROVIDERS: Visit Provider Internal Medicine
DX: Z00.00 Encounter for general adult medical examination without abnormal findings (principal); E13.9 Other specified diabetes mellitus without complications; F39 Unspecified mood [affective] disorder; J45.20 Mild intermittent asthma, uncomplicated; Z90.3 Acquired absence of stomach [part of]; Z23 Encounter for immunization
CPT/HCPCS: 90471; 90686; 99396

== ENCOUNTER 2023-10-19 07:08 | Outpatient (REF) | payer OTHER, SELFPAY ==
[2023-10-19 07:43] LABS: MANUAL DIFF FLAG NO
[2023-10-19 08:13] LABS: Basophils Percent Auto 0.7 % (0-2); Eosinophils Absolute Auto 0.2 X10*3/uL (0.0-0.4); Eosinophils Percent Auto 4.8 % (0-4); Hematocrit 35.4 % (37.0-47.0); Hemoglobin 11.2 g/dl (12.0-16.0); Imm Gran Abs Auto 0.01 X10*3/uL (0.00-0.03); Imm Gran Pct Auto 0.2 % (0.0-0.4); Lymphocytes Absolute Auto 1.5 X10*3/uL (1.2-4.9); Mean Corpuscular HGB Conc 31.6 g/dl (31.0-35.0); Mean Corpuscular Hemoglobin 27.1 pg (27.0-33.0); Mean Corpuscular Volume 85.5 fL (80.0-98.0); Mean Platelet Volume 10.3 fL (9.4-12.3); Monocytes Absolute Auto 0.4 X10*3/uL (0.1-1.2); Monocytes Percent Auto 8.5 % (2-11); Neutrophils Absolute Auto 2.4 x10*3/uL (2.0-8.3); Neutrophils Percent Auto 52.8 % (45-73); Platelet Count 280 X10*3/uL (160-400); Red Blood Count 4.14 X10*6/uL (4.20-5.50); Red Cell Distribution Width 13.3 % (11.0-16.0); White Blood Count 4.6 X10*3/uL (4.8-10.8)
[2023-10-19 08:27] LABS: Estimated Average Glucose 123 mg/dL; Hemoglobin A1c % 5.9 % (<6.0)
[2023-10-19 08:59] LABS: Alanine Aminotransferase 14 U/L (0-31); Albumin Level 3.9 g/dL (3.5-5.0); Alkaline Phosphatase 75 U/L (39-117); Anion Gap 12 (12-20); Aspartate Amino Transferase 17 U/L (5-31); Bilirubin Total 0.5 mg/dL (0.0-1.0); Blood Urea Nitrogen 14 mg/dL (9-16); Calcium 8.7 mg/dL (8.4-10.2); Carbon Dioxide 25 mmol/L (22-29); Chloride 110 mmol/L (96-108); Cholesterol 154 mg/dL (<200); Estimated Glomerular Filt Rate > 60; Glucose Random 96 mg/dL (60-115); HDL Cholesterol 55 mg/dL (>40); Iron 90 mcg/dL (30-160); LDL Cholesterol Calculated 89 mg/dL (<100); Percent Iron Saturation 29 % (15-50); Potassium 4.1 mmol/L (3.3-5.1); Sodium 143 mmol/L (135-145); Total Iron Binding Capacity 312 mcg/dL (228-428); Total Protein 6.8 g/dL (6.5-8.0); Triglycerides 53 mg/dL (<150); Unsaturated Iron Binding 222 ug/dL
[2023-10-19 09:18] LABS: Folate 16.8 ng/mL (> or = 4.0); Vitamin B12 702 pg/mL (200-900)
[2023-10-19 13:46] LABS: Ferritin 10 ng/mL (10-250); Insulin 5 uU/mL (2-29); TSH reflex Free T4 1.51 uIU/mL (0.32-4.0); Vitamin D 25-OH Total 30.7 ng/mL (>30)
[2023-10-22 06:13] LABS: Zinc 95 mcg/dL (60-130)
[2023-10-23 14:02] LABS: Vitamin A 41 mcg/dL (38-98)
[2023-10-26 05:13] LABS: Vitamin B1 34 nmol/L (8-30)
== END 2023-10-19 07:09 | disposition home or self-care (01) ==
LOC: HO.LAB 07:08
PROVIDERS: PCP Internal Medicine; Visit Provider Physician Assistant Surgical
DX: Z90.3 Acquired absence of stomach [part of] (principal)
CPT/HCPCS: 36415; 80053; 80061; 82306; 82607; 82728; 82746; 83036; 83525; 83540; 84425; 84443; 84590; 84630; 85025; 86140

== ENCOUNTER 2023-10-22 10:57 | Outpatient (AMB) | payer OTHER, SELFPAY ==
--- NOTE | 2023-10-22 11:00 | A.OFFVIS_ITS ---
Intake VS Expanded 10/22/23 11:10 BP 122/66 Blood Pressure Location Rt brachial Blood Pressure Position Sitting Pulse 67 Pulse Source Pulse Oximeter Temp 97.5 F Temperature Source Tympanic Pulse Oximetry 100 Oxygen Delivery Method Room Air Height 5 ft 1 in Weight 154 lb 6.4 oz BMI 29.2 Body Fat % 24.9 Body Fat Mass 38.4 Fat Free Mass 116.0 Visceral Fat Rating 5.0 Body Water % 53.4 Body Water Mass 82.4 Muscle Mass/Score 110.0 Basal Metabolic Rate/Score 1,535 Intake Visit Reasons: (OV) PO LSG 12/20/22 Allergies shellfish derived [SHELLFISH DERIVED] Allergy (Severe, Verified 10/22/23 11:04) HIVES/SWELLING Fruits Allergy (Intermediate, Uncoded 10/22/23 11:04) hives/swelling Raw fruits Allergy (Intermediate, Uncoded 10/22/23 11:04) itching, rhinitis Environmental Allergy (Unknown, Uncoded 10/22/23 11:04) unknown Medication List - Last Reconciled 10/22/23 by MELLISA Uribe cetirizine (All Day Allergy (cetirizine)) 10 mg PO DAILY 90 days clotrimazole 1% 1 appl topical BID docusate sodium (Colace) 100 mg PO DAILY lamotrigine 25 mg PO DAILY 30 days Ventolin HFA 90 mcg/actuation (albuterol sulfate) 2 puffs inhalation Q4-6H PRN 30 days NS HPI HPI Comments History of Present Illness Details This?is a?48?yo female who is s/p LSG 12/20/2022. Presents for 10 month post op visit. Weight at last visit on 05/10/2023 was 165.6 pounds with a BMI of 31.3, weight today is 154.4 pounds, representing an 11.2 pound weight loss with a BMI today of 29.2.? No complaints of nausea, emesis, abdominal pain or reflux, or constipation. Present meal plan includes: 7am 1-2oz protein (yogurt, egg, CC) 9-11am Celebrate shake, 2 scoops in 8oz UAM 1-3pm same shake 6pm 1-2oz protein (soft meats), 1oz cook ed veg takes MVI Exercise routine includes: treadmill and bike- 2000 calories per week, 90 min 4x/week?? ? has had a lot of sciatic pain due to excess skin of abdomen- has limited her ability to exercise as much or walk as much Notices excess skin of abdomen, which does develop itchy rashes. Causes some back pain due to excess skin in front of body being heavy and uncomfortable. The excess skin inhibits exercise and movement, including walking which is more difficult due to excess skin dragging down . Has to tuck clothing into skin fold to prevent friction. Using clotrimazole ointment which does not completely resolve the issue. Was much worse when weather was getting warmer and she is sweating more outside. Wearing compressive pants/waistband/binder to help hold skin in place but this does not completely relieve her discomfort.? [facility] Medical History (Updated 10/22/23 @ 11:40 by MELLISA Uribe) Encounter for general adult medical examination with abnormal findings BMI 39.0-39.9,adult History of anesthesia reaction COVID-19 vaccine series completed History of COVID-19 DJD (degenerative joint disease) GERD (gastroesophageal reflux disease) Morbid obesity Asthma Obesity Tear of medial meniscus of left knee Asthma exacerbation Internal derangement of left knee Morbid obesity with BMI of 40.0-44.9, adult Encounter for annual routine gynecological examination Diabetes 1.5, managed as type 2 Environmental allergies Anxiety, generalized Surgical History (Reviewed 10/22/23 @ 11:22 by Graciela Ayon [facility]) Hx of knee surgery History of arthroscopy of right knee Status post breast reduction History of breast biopsy History of bilateral tubal ligation History of section History of wisdom tooth extraction Family History (Reviewed 10/22/23 @ 11:22 by Graciela Ayon [facility]) Family/Other HTN (hypertension) Depression Type 2 diabetes mellitus Mother Asthma Arthritis Maternal Grandfather No problems noted. Maternal Grandmother No problems noted. Paternal Grandfather No problems noted. Paternal Grandmother No problems noted. Brother No problems noted. Brother No problems noted. Daughter No problems noted. Sister No problems noted. Sister Mental health disorder Sister No problems noted. Sister No problems noted. Son No problems noted. Son No problems noted. 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 Sexual orientation: Straight/Heterosexual Gender identity: Female Cognitive needs: No Hearing needs: No Vision needs: Yes Physical Exam Const General: cooperative, comfortable and no acute distress Orientation/consciousness: patient oriented x3 GI Other: soft, nontender, nondistended, incisions well healed, no hernia, no masses grade II pannus Neuro General: patient oriented x3 Assessment & Plan Assessment & Plan (1) Status post sleeve gastrectomy: Code(s): Z90.3 - Acquired absence of stomach [part of] (2) Overweight: Code(s): E66.3 - Overweight (3) Excess skin: Code(s): L98.7 - Excessive and redundant skin and subcutaneous tissue Plan Pt to continue same meal plan for now. Gave handout on protein manzo as she shared that she would like some variety in her shakes, and also gave yogurt handout for other brands. She understands that if approved for panniculectomy she will have to change her meal plan again per Dr. Maciel's instructions. Once healed from panniculectomy and at goal weight, can meet with RD for discussion of maintenance and expansion of meal plan. Labs reviewed; several levels still pending, vit D ordered. RTC 2 months for annual visit. Can consider submission to insurance for panniculectomy approval at that time if able to continue with weight loss. Patient is overweight and with issues of excess skin, and is not considered stable at this time. I spent a total of 30 minutes reviewing/updating records, examining the patient and counseling the patient on weight management as detailed above. Medications: New cholecalciferol (vitamin D3) 25 mcg PO DAILY 90 caps 3RF Coding Level of Care Code Est Pt Level 4 (57116) Diagnoses Status post sleeve gastrectomy Z90.3 Overweight E66.3 Excess skin L98.7
[2023-10-22 11:10] VITALS: BP 122/66; PULSE 67; TEMP 36.4; O2SAT 100; BMI 29.2
== END 2023-10-22 11:43 | disposition home or self-care (01) ==
PROVIDERS: PCP Internal Medicine; Visit Provider Physician Assistant Surgical
DX: E66.3 Overweight (principal); Z68.29 Body mass index [BMI] 29.0-29.9, adult; Z90.3 Acquired absence of stomach [part of]; Z98.84 Bariatric surgery status; L98.7 Excessive and redundant skin and subcutaneous tissue
CPT/HCPCS: 99214

== ENCOUNTER → 2023-10-22 10:57 | Outpatient (BNVA) | payer OTHER, SELFPAY | PROVIDERS: PCP Internal Medicine; Visit Provider Physician Assistant Surgical | DX: E66.3 Overweight (principal); Z90.3 Acquired absence of stomach [part of]; L98.7 Excessive and redundant skin and subcutaneous tissue; Z68.29 Body mass index [BMI] 29.0-29.9, adult | CPT/HCPCS: 99212 ==

== ENCOUNTER 2023-10-25 07:43 | Outpatient (AMB) | payer OTHER, SELFPAY ==
--- NOTE | 2023-10-25 07:43 | A.OFFPC_ITS ---
Intake Visit Reasons: 3 Week F/U [phone] (no answer) Allergies shellfish derived [SHELLFISH DERIVED] Allergy (Severe, Verified 10/22/23 11:04) HIVES/SWELLING Fruits Allergy (Intermediate, Uncoded 10/22/23 11:04) hives/swelling Raw fruits Allergy (Intermediate, Uncoded 10/22/23 11:04) itching, rhinitis Environmental Allergy (Unknown, Uncoded 10/22/23 11:04) unknown Medication List - Last Reconciled 10/25/23 by Cruz Walker MD cetirizine (All Day Allergy (cetirizine)) 10 mg PO DAILY 90 days cholecalciferol (vitamin D3) 25 mcg PO DAILY clotrimazole 1% 1 appl topical BID docusate sodium (Colace) 100 mg PO DAILY lamotrigine 25 mg PO DAILY 30 days Ventolin HFA 90 mcg/actuation (albuterol sulfate) 2 puffs inhalation Q4-6H PRN 30 days NS Tobacco use date assessed: 10/25/23 HPI 3 Week F/U [id number] (no answer) HPI Details The telemedicine follow-up appointment Patient was started on lamotrigine 25 mg for mood disorder 3 weeks ago She says that she is tolerating medication there are no side effects and she is feeling much better. She would like to continue the medication Ninety day refill sent We will set up another follow-up in 3 months. [facility] Medical History Encounter for general adult medical examination with abnormal findings BMI 39.0-39.9,adult History of anesthesia reaction COVID-19 vaccine series completed History of COVID-19 DJD (degenerative joint disease) GERD (gastroesophageal reflux disease) Morbid obesity Asthma Obesity Tear of medial meniscus of left knee Asthma exacerbation Internal derangement of left knee Morbid obesity with BMI of 40.0-44.9, adult Encounter for annual routine gynecological examination Diabetes 1.5, managed as type 2 Environmental allergies Anxiety, generalized Surgical History Hx of knee surgery History of arthroscopy of right knee Status post breast reduction History of breast biopsy History of bilateral tubal ligation History of section History of wisdom tooth extraction Family History Family/Other HTN (hypertension) Depression Type 2 diabetes mellitus Mother Asthma Arthritis Maternal Grandfather No problems noted. Maternal Grandmother No problems noted. Paternal Grandfather No problems noted. Paternal Grandmother No problems noted. Brother No problems noted. Brother No problems noted. Daughter No problems noted. Sister No problems noted. Sister Mental health disorder Sister No problems noted. Sister No problems noted. Son No problems noted. Son No problems noted. 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 Jovany Dunlap, Edna Soto, Andrew Ochoa and colleagues, with an educational laura from [email or web address]. Review of Systems Const Denies chills and Denies fever(s) ENT Denies epistaxis and Denies nasal discharge Card Denies chest pain Resp Denies chest congestion, Denies cough and Denies hemoptysis GI Denies diarrhea and Denies nausea Skin/Breast Denies rash Neuro Reports no additional complaints Psych Reports no additional complaints Endo Reports no additional complaints Physical exam (Primary Care) Tobacco/Smoking Status: Tobacco use Status Tobacco use date assessed 10/25/23 10/25/23 07:44 Patient Tobacco Use Status Never used Tobacco 10/25/23 07:44 e-Cigarette/Vaping Use Never Used 10/25/23 07:44 Thrive Assessment: Date of Thrive Assessment Date Thrive assessed 10/04/23 12 07:44 Telehealth Telehealth Location of provider rendering services: practice address Location of patient: address on file Patient Identification confirmed using: Name, : Yes Telehealth method: voice only Patient verbally consented to treatment: Yes Patient verbally consented to billing insurance company: Yes Patient informed of any privacy concerns related to visit: Yes Minutes spent on Phone/Video with Pt.: 12 Assessment and Plan Assessment & Plan (1) Mood disorder: Code(s): F39 - Unspecified mood [affective] disorder Plan The telemedicine follow-up appointment Patient was started on lamotrigine 25 mg for mood disorder 3 weeks ago She says that she is tolerating medication there are no side effects and she is feeling much better. She would like to continue the medication Ninety day refill sent We will set up another follow-up in 3 months. Medications: Changed From lamotrigine 25 mg PO DAILY 30 days 30 tabs 0RF To lamotrigine 25 mg PO DAILY 90 tabs 0RF 90 days Coding Level of Care Code Tele Est Pt Level 3 (06778) Diagnoses Mood disorder F39
== END 2023-10-25 11:21 | disposition home or self-care (01) ==
LOC: HO.HMGC 07:43
PROVIDERS: PCP Internal Medicine; Visit Provider Internal Medicine
DX: F39 Unspecified mood [affective] disorder (principal)
CPT/HCPCS: 99213

== ENCOUNTER 2023-12-26 10:36 | Outpatient (AMB) | payer OTHER, SELFPAY ==
--- NOTE | 2023-12-26 10:34 | A.OFFVIS_ITS ---
Intake Intake Visit Reasons: (TV) PO LSG 12/20/22 Allergies shellfish derived [SHELLFISH DERIVED] Allergy (Severe, Verified 10/22/23 11:04) HIVES/SWELLING Fruits Allergy (Intermediate, Uncoded 10/22/23 11:04) hives/swelling Raw fruits Allergy (Intermediate, Uncoded 10/22/23 11:04) itching, rhinitis Environmental Allergy (Unknown, Uncoded 10/22/23 11:04) unknown Medication List - Last Reconciled 12/26/23 by MELLISA Uribe cetirizine (All Day Allergy (cetirizine)) 10 mg PO DAILY 90 days cholecalciferol (vitamin D3) 50 mcg PO DAILY clotrimazole 1% 1 appl topical BID docusate sodium (Colace) 100 mg PO DAILY iron,carbonyl-vitamin C 65 mg iron- 125 mg (Vitron-C) 1 tab PO BEDTIME lamotrigine 25 mg PO DAILY 90 days Ventolin HFA 90 mcg/actuation (albuterol sulfate) 2 puffs inhalation Q4-6H PRN 30 days NS HPI HPI Comments History of Present Illness Details This?is a?48?yo female who is s/p LSG 12/20/2022. Presents for 1 year post op visit. Weight at last visit on 10/22/2023 was 154.4 pounds with a BMI of 29.2, weight today is same although pt is unsure as she did not weigh herself today.? No complaints of nausea, emesis, abdominal pain or reflux, or constipation. Present meal plan includes: 7am 1-2oz protein (yogurt, egg, CC) 9-11am Celebrate shake, 2 scoops in 8oz UAM 1-3pm same shake 6pm 1-2oz protein (soft meats), 1oz cook ed vegetables MVI Exercise routine includes: treadmill and bike- 2000 calories per week, 90 min 4x/week?? ? has had a lot of sciatic pain due to excess skin of abdomen- has limited her ability to exercise as much or walk as much Notices excess skin of abdomen, which does develop itchy rashes. Causes some back pain due to excess skin in front of body being heavy and uncomfortable. The excess skin inhibits exercise and movement, including walking which is more difficult due to excess skin dragging down . Has to tuck clothing into skin fold to prevent friction. Using clotrimazole ointment which does not completely resolve the issue. Was much worse when weather was getting warmer and she is sweating more outside. Wearing compressive pants/waistband/binder to help hold skin in place but this does not completely relieve her discomfort.? [facility] History Encounter for general adult medical examination with abnormal findings BMI 39.0-39.9,adult History of anesthesia reaction COVID-19 vaccine series completed History of COVID-19 DJD (degenerative joint disease) GERD (gastroesophageal reflux disease) Morbid obesity Asthma Obesity Tear of medial meniscus of left knee Asthma exacerbation Internal derangement of left knee Morbid obesity with BMI of 40.0-44.9, adult Encounter for annual routine gynecological examination Diabetes 1.5, managed as type 2 Environmental allergies Anxiety, generalized Surgical History Hx of knee surgery History of arthroscopy of right knee Status post breast reduction History of breast biopsy History of bilateral tubal ligation History of section History of wisdom tooth extraction Family History Family/Other HTN (hypertension) Depression Type 2 diabetes mellitus Mother Asthma Arthritis Maternal Grandfather No problems noted. Maternal Grandmother No problems noted. Paternal Grandfather No problems noted. Paternal Grandmother No problems noted. Brother No problems noted. Brother No problems noted. Daughter No problems noted. Sister No problems noted. Sister Mental health disorder Sister No problems noted. Sister No problems noted. Son No problems noted. Son No problems noted. 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 She is not in a fuentes to have skin removal surgery and is satisfield with waiting a few more months to discuss further. We discussed either increasing exercise or transitioning to a more supplement based food plan as options for additional weight loss, ~5 more pounds before submission to insurance. Can address again at next visit. Labs reviewed, vit D and iron previously ordered. RTC 3 months. Patient is overweight and is not considered stable at this time. I spent a total of 30 minutes reviewing/updating records, examining the patient and counseling the patient on weight management as detailed above. Telehealth Telehealth Location of provider rendering services: practice address Location of patient: address on file Patient Identification confirmed using: Name, : Yes Telehealth method: voice only Patient verbally consented to treatment: Yes Patient verbally consented to billing insurance company: Yes Patient informed of any privacy concerns related to visit: Yes Minutes spent on Phone/Video with Pt.: 15 Coding Level of Care Code Tele Est Pt Level 4 (48254) Diagnoses Excess skin L98.7 Overweight E66.3 Status post sleeve gastrectomy Z90.3
== END 2023-12-26 10:49 | disposition home or self-care (01) ==
LOC: HO.HBS 10:36
PROVIDERS: PCP Internal Medicine; Visit Provider Physician Assistant Surgical
DX: L98.7 Excessive and redundant skin and subcutaneous tissue (principal); E66.3 Overweight; Z90.3 Acquired absence of stomach [part of]
CPT/HCPCS: 99214

== ENCOUNTER → 2023-12-26 10:36 | Outpatient (BNVA) | payer OTHER, SELFPAY | PROVIDERS: PCP Internal Medicine; Visit Provider Physician Assistant Surgical ==

== ENCOUNTER 2024-01-17 07:25 | Outpatient (AMB) | payer OTHER, SELFPAY ==
--- NOTE | 2024-01-17 07:27 | MHC.PC.OV ---
Intake Visit Reasons: 3 month follow up Allergies shellfish derived [SHELLFISH DERIVED] Allergy (Severe, Verified 01/17/24 07:28) HIVES/SWELLING Fruits Allergy (Intermediate, Uncoded 01/17/24 07:28) hives/swelling Raw fruits Allergy (Intermediate, Uncoded 01/17/24 07:28) itching, rhinitis Environmental Allergy (Unknown, Uncoded 01/17/24 07:28) unknown Medication List - Last Reconciled 01/17/24 by Cruz Walker MD cetirizine (All Day Allergy (cetirizine)) 10 mg PO DAILY 90 days cholecalciferol (vitamin D3) 50 mcg PO DAILY clotrimazole 1% 1 appl topical BID docusate sodium (Colace) 100 mg PO DAILY iron,carbonyl-vitamin C 65 mg iron- 125 mg (Vitron-C) 1 tab PO BEDTIME lamotrigine 25 mg PO DAILY 90 days Ventolin HFA 90 mcg/actuation (albuterol sulfate) 2 puffs inhalation Q4-6H PRN 30 days NS Tobacco use date assessed: 01/17/24 Dental Screening Dental Screen Date: 01/17/24 Did you have a dental visit in the last 12 months?: Yes Did you have a dental problem in the last 6 months where you did not have access to dental care?: No Was dental information given to patient?: Patient has dentist HPI 3 month follow up HPI Details Patient is a 48-year-old female this is a telemedicine video follow-up Patient suffers from mood disorder, she is currently taking lamotrigine 25 mg Patient says that the medication is helping her, she has no side effects and she would like to continue that Medications sent for 3 months [facility] Medical History Encounter for general adult medical examination with abnormal findings BMI 39.0-39.9,adult History of anesthesia reaction COVID-19 vaccine series completed History of COVID-19 DJD (degenerative joint disease) GERD (gastroesophageal reflux disease) Morbid obesity Asthma Obesity Tear of medial meniscus of left knee Asthma exacerbation Internal derangement of left knee Morbid obesity with BMI of 40.0-44.9, adult Encounter for annual routine gynecological examination Diabetes 1.5, managed as type 2 Environmental allergies Anxiety, generalized Surgical History Hx of knee surgery History of arthroscopy of right knee Status post breast reduction History of breast biopsy History of bilateral tubal ligation History of section History of wisdom tooth extraction Family History Family/Other HTN (hypertension) Depression Type 2 diabetes mellitus Mother Asthma Arthritis Maternal Grandfather No problems noted. Maternal Grandmother No problems noted. Paternal Grandfather No problems noted. Paternal Grandmother No problems noted. Brother No problems noted. Brother No problems noted. Daughter No problems noted. Sister No problems noted. Sister Mental health disorder Sister No problems noted. Sister No problems noted. Son No problems noted. Son No problems noted. 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 1. Little interest or pleasure in doing things: not at all 2. Feeling down, depressed, or hopeless: not at all 3. Trouble falling or staying asleep, or sleeping too much: not at all 4. Feeling tired or having little energy: several days 5. Poor appetite or overeating: not at all 6. Feeling bad about yourself - or that you are a failure or have let yourself or your family down: several days 7. Trouble concentrating on things, such as reading the newspaper or watching television: not at all 8. Moving or speaking so slowly that other people could have noticed. Or the opposite - being so fidgety or restless that you have been moving around a lot more than usual: not at all 9. Thoughts that you would be better off or of hurting yourself in some way: not at all Total score: 2 Depression Screening Interpretation: Negative Depression Screening Done: Yes 16849 - PHQ-9 Billing: Yes Source: Developed by Drs. Jovany Dunlap, Edna Soto, Andrew Ochoa and colleagues, with an educational laura from [employer]. Thrive Questionnaire Date Thrive assessed: 01/17/24 I am a: Patient What is your living situation today?: I have a steady place to live Within the past 12 months, did the food you bought not last and you didn't have the money to get more?: Never true Within the past 12 months, did you worry whether your food would run out before you got money to buy more?: Never true Do you have trouble paying for medicines?: No Do you have trouble getting transportation to medical appointments?: No Do you have trouble paying your heating and electricity bill?: No Do you have trouble taking care of your child, family member or friend?: No Do you have trouble with day-to-day activities such as bathing, preparing meals, shopping, managing finances, etc.?: No Are you currently unemployed and looking for a job?: No Are you interested in more education?: No Please select the resources that you would like help with: None Currently or been in a relationship where the following occur: no concerns reported THRIVE Score: 0 AUDIT C Alcohol Use Questionnaire (AUDIT-C) 1. How often do you have a drink containing alcohol?: Never 3. How often do you have six or more drinks on one occasion?: Never Total Score: 0 Score Reviewed/Action Taken: No ALEJANDRO-7 AMB Questionnaire ALEJANDRO-7 Date ALEJANDRO - 7 assessed: 01/17/24 Feeling nervous, anxious, or on edge: 0 = Not at all Not being able to stop or control worryin = Not at all Worrying too much about different things: 0 = Not at all Trouble relaxin = Not at all Being so restless that it is hard to sit still: 0 = Not at all Becoming easily annoyed or irritable: 0 = Not at all Feeling afraid as if something awful might happen: 0 = Not at all Total ALEJANDRO-7 score (0-4 normal; 5-9 mild; 10-14 moderate; 15-21 severe): 0 Source: Developed by Edna Landers, Andrew Ochoa and colleagues, with an educational laura from [employer]. ALEJANDRO-7 Assessment Billing ALEJANDRO-7 Assessment Tool: ALEJANDRO-7 Assessment 85928 Review of Systems Const Denies chills and Denies fever(s) ENT Denies epistaxis and Denies nasal discharge Card Denies chest pain Resp Denies chest congestion, Denies cough and Denies hemoptysis GI Denies diarrhea and Denies nausea Skin/Breast Denies rash Neuro Reports no additional complaints Psych Reports no additional complaints Endo Reports no additional complaints Physical exam (Primary Care) Tobacco/Smoking Status: Tobacco use Status Tobacco use date assessed 01/17/24 01/17/24 07:29 Patient Tobacco Use Status Never used Tobacco 01/17/24 07:29 e-Cigarette/Vaping Use Never Used 01/17/24 07:29 PHQ-9: PHQ-9 Score PHQ-9: Total score 2 01/17/24 07:29 Depression Screening Interpretation: Negative Thrive Assessment: Date of Thrive Assessment Date Thrive assessed 01/17/24 01/17/24 07:29 Currently or been in a relationship where the following occur: no concerns reported Telehealth Telehealth Location of provider rendering services: practice address Location of patient: address on file Patient Identification confirmed using: Name, : Yes Telehealth method: video Patient verbally consented to treatment: Yes Patient verbally consented to billing insurance company: Yes Patient informed of any privacy concerns related to visit: Yes Minutes spent on Phone/Video with Pt.: 12 Assessment and Plan Assessment & Plan (1) Mood disorder: Code(s): F39 - Unspecified mood [affective] disorder Plan Patient is a 48-year-old female this is a telemedicine video follow-up Patient suffers from mood disorder, she is currently taking lamotrigine 25 mg Patient says that the medication is helping her, she has no side effects and she would like to continue that Medications sent for 3 months Medications: Refilled lamotrigine 25 mg PO DAILY 90 days 90 tabs 0RF Coding Level of Care Code Tele Est Pt Level 3 (44554) Diagnoses Mood disorder F39 Additional Codes ALEJANDRO-7 Assessment Billing - ALEJANDRO-7 Assessment Tool: ALEJANDRO-7 Assessment 72898 ([id number])
== END 2024-01-17 08:20 | disposition home or self-care (01) ==
LOC: HO.HMGC 07:26
PROVIDERS: PCP Internal Medicine; Visit Provider Internal Medicine
DX: F39 Unspecified mood [affective] disorder (principal)
CPT/HCPCS: 99213

== ENCOUNTER 2024-02-20 07:55 | Outpatient (REF) | payer OTHER, SELFPAY ==
--- NOTE | ~2024-02-20 | MM_ITS ---
EXAMINATION: MM SCREENING DIGITAL BREAST TOMOSYNTHESIS, BILATERAL CLINICAL INFORMATION: Screening. Asymptomatic. The patient is status post bilateral breast reduction. COMPARISON: Mammography: This study is compared with prior exams dating back to 2019. TECHNIQUE: Digital breast tomosynthesis is performed in both the craniocaudal and mediolateral oblique views along with computer-aided detection (CAD). Synthesized 2D images are generated from the tomosynthesis. FINDINGS: There are scattered areas of fibroglandular density (ACR BI-RADS breast composition Category b). There are no significant masses, abnormal calcifications, or other abnormalities. There are post reduction changes in each breast. MM/MM tomosynthesis screening BI IMPRESSION: No mammographic evidence of malignancy. ASSESSMENT: BI-RADS BI-RADS 2 - Benign Findings RECOMMENDATION: Routine annual mammography screening. 1 year F/U This examination should not preclude the clinical evaluation of a suspicious palpable abnormality. This patient's information was entered into a reminder system with a target due date for their next mammogram.
== END 2024-02-20 07:56 | disposition home or self-care (01) ==
LOC: HO.MAMMO 07:55
PROVIDERS: PCP Internal Medicine; Visit Provider Internal Medicine
DX: Z12.31 Encounter for screening mammogram for malignant neoplasm of breast (principal)
CPT/HCPCS: 77063; 77067

== ENCOUNTER → 2024-02-20 08:00 | Outpatient (BNV) | payer OTHER, SELFPAY | PROVIDERS: PCP Internal Medicine; Visit Provider Radiology Diagnostic Radiology | DX: Z12.31 Encounter for screening mammogram for malignant neoplasm of breast (principal) | CPT/HCPCS: 77063; 77067 ==

== ENCOUNTER 2024-03-11 12:47 | Outpatient (AMB) | payer OTHER, SELFPAY ==
--- NOTE | 2024-03-11 13:05 | MHC.OFFVIS ---
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 Doing well with no concerns. She tries to eat healthy and stays active with exercise. Regular monthly menses. Currently is sexually active. She denies vaginal itching and irritation. STI screening offered; she declined. Denies family history of breast, ovarian or colon cancer. Last pap smear 2019, negative. Prior ASCUS, ABIGAIL 1, 2 negative Paps since. Mammogram: 2023 [facility] Medical History Encounter for general adult medical examination with abnormal findings BMI 39.0-39.9,adult History of anesthesia reaction COVID-19 vaccine series completed History of COVID-19 DJD (degenerative joint disease) GERD (gastroesophageal reflux disease) Morbid obesity Asthma Obesity Tear of medial meniscus of left knee Asthma exacerbation Internal derangement of left knee Morbid obesity with BMI of 40.0-44.9, adult Encounter for annual routine gynecological examination Diabetes 1.5, managed as type 2 Environmental allergies Anxiety, generalized Surgical History Hx of knee surgery History of arthroscopy of right knee Status post breast reduction History of breast biopsy History of bilateral tubal ligation History of section History of wisdom tooth extraction Family History Family/Other HTN (hypertension) Depression Type 2 diabetes mellitus Mother Asthma Arthritis Maternal Grandfather No problems noted. Maternal Grandmother No problems noted. Paternal Grandfather No problems noted. Paternal Grandmother No problems noted. Brother No problems noted. Brother No problems noted. Daughter No problems noted. Sister No problems noted. Sister Mental health disorder Sister No problems noted. Sister No problems noted. Son No problems noted. Son No problems noted. 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[employer] Sexual orientation: Straight/Heterosexual Gender identity: Female Cognitive needs: No Hearing needs: No Vision needs: Yes Female Reproductive History Menstrual Date of last menstrual period: 03/01/24 control method: permanent sterilization Permanent Sterilization: BTL Total pregnancies: 3 Full term: 3 Number of Living Children: 3 Date of last pap smear: 08/16/20 (neg pap and hpv) History of abnormal pap smear: Yes (04/04 ascus +hpv 06/04 colpo abigail 1 05/06 neg,neg) Date of Mammogram: 02/20/24 (Birad 2) Review of Systems Const All systems reviewed & are unremarkable except as noted in HPI and below Reports as per HPI Eyes Reports no additional complaints ENT Reports no additional complaints Card Reports no additional complaints Resp Reports no additional complaints GI Reports as per HPI and Reports no additional complaints Reports as per HPI Musc Reports no additional complaints Skin/Breast Reports as per HPI Neuro Reports no additional complaints Psych Reports no additional complaints Endo Reports no additional complaints Giovanny/Lymph Reports no additional complaints Aller/Immun Reports no additional complaints Physical Exam Vital Signs: Last Vital Signs BP 96/60 03/11/24 13:07 BMI result Body Mass Index 31.2 Const General: cooperative, healthy appearing, no acute distress, well developed and alert Orientation/consciousness: patient oriented x3 HEENT Head: Yes normal to inspection Eyes General: appearance normal, both eyes and all related structures Neck Neck: Yes normal visual inspection Thyroid: Thyroid normal Chest Chest palpation & inspection: normal inspection of the chest and other (no puckering, dimpling, peau de orange, retraction, discharge, masses) Breast/axilla inspection: normal inspection of the breasts Breast/axilla palpation: normal palpation of the breasts Resp Effort & Inspection: normal respiratory effort GI Inspection: Yes normal to inspection Palpation (GI): Soft to palpation Rectal Exam - Female: deferred General: Yes bladder normal to palpation External Female Exam: normal external appearance and normal appearance of the urethra Speculum Exam - Vagina: normal appearance of the vagina, normal palpation and normal vaginal discharge (yellow) Speculum Exam - Cervix: normal appearance of the cervix and normal palpation Bimanual exam- vagina & uterus: normal bimanual exam, normal palpation, uterine size normal, bladder normal to palpation, normal palpation and non-tender Bimanual Exam- Adnexa, other: no masses Skin General skin exam: no rashes or lesions noted Rashes: no rashes Neuro General: patient oriented x3 Cognition (Neuro): normal cognition Extrem General: Yes normal to inspection Psych Attitude: cooperative Thought process: Normal thought process present Assessment & Plan Assessment & Plan (1) Encounter for well woman exam with routine gynecological exam: Code(s): Z01.419 - Encounter for gynecological examination (general) (routine) without abnormal findings Plan Discussed: Current recommendations for pap smears per ASCCP guidelines. Breast awareness and periodic breast exams. Maintain a healthy lifestyle including a well balanced diet and routine exercise. Mammogram yearly. Patient verbalizes understanding and agrees to the plan of care. She was given opportunity to ask questions and all questions were answered to the best of my ability. RTO in one year for annual structural architect examination. This note is constructed using voice recognition software. While every effort has been made to ensure accuracy, attending psychiatrist errors may have been included. Coding Level of Care Code Est Pt Prev Care 40-64y(19665) Diagnoses Encounter for well woman exam with routine gynecological exam Z01.419
[2024-03-11 13:07] VITALS: BP 96/60; BMI 31.2
== END 2024-03-11 13:42 | disposition home or self-care (01) ==
PROVIDERS: PCP Internal Medicine; Visit Provider Advanced Practice Midwife
DX: Z01.419 Encounter for gynecological examination (general) (routine) without abnormal findings (principal)
CPT/HCPCS: 99396

== ENCOUNTER → 2024-03-11 12:47 | Outpatient (BNVA) | payer OTHER, SELFPAY | PROVIDERS: PCP Internal Medicine; Visit Provider Advanced Practice Midwife | DX: Z01.419 Encounter for gynecological examination (general) (routine) without abnormal findings (principal) | CPT/HCPCS: 99396 ==

== ENCOUNTER 2024-04-16 07:35 | Outpatient (AMB) | payer OTHER, SELFPAY ==
--- NOTE | 2024-04-16 08:55 | A.OFFPC_ITS ---
Intake Visit Reasons: Follow up- NEEDS A1C Allergies shellfish derived [SHELLFISH DERIVED] Allergy (Severe, Verified 04/16/24 08:56) HIVES/SWELLING Fruits Allergy (Intermediate, Uncoded 01/17/24 07:28) hives/swelling Raw fruits Allergy (Intermediate, Uncoded 01/17/24 07:28) itching, rhinitis Environmental Allergy (Unknown, Uncoded 01/17/24 07:28) unknown Medication List - Last Reconciled 04/16/24 by Cruz Walker MD cetirizine (All Day Allergy (cetirizine)) 10 mg PO DAILY 90 days cholecalciferol (vitamin D3) 50 mcg PO DAILY clotrimazole 1% 1 appl topical BID docusate sodium (Colace) 100 mg PO DAILY iron,carbonyl-vitamin C 65 mg iron- 125 mg (Vitron-C) 1 tab PO BEDTIME lamotrigine 25 mg PO DAILY 90 days Ventolin HFA 90 mcg/actuation (albuterol sulfate) 2 puffs inhalation Q4-6H PRN 30 days NS Tobacco use date assessed: 04/16/24 Dental Screening Dental Screen Date: 04/16/24 Did you have a dental visit in the last 12 months?: Yes Did you have a dental problem in the last 6 months where you did not have access to dental care?: No Was dental information given to patient?: Patient has dentist HPI Follow up- NEEDS A1C HPI Details This is a telemedicine video conference patient is a 49-year-old female Reviewing her chart I noticed that she is slightly anemic, last time she had CBC was October of last year Patient was notified to repeat labs again As per her mood she is doing very well with lamotrigine 25 mg She is tolerating medication no side effects She will continue that for now I have sent refills We will re-evaluate again in 3 months. She offers no new complaints today [facility] Medical History Encounter for general adult medical examination with abnormal findings BMI 39.0-39.9,adult History of anesthesia reaction COVID-19 vaccine series completed History of COVID-19 DJD (degenerative joint disease) GERD (gastroesophageal reflux disease) Morbid obesity Asthma Obesity Tear of medial meniscus of left knee Asthma exacerbation Internal derangement of left knee Morbid obesity with BMI of 40.0-44.9, adult Encounter for annual routine gynecological examination Diabetes 1.5, managed as type 2 Environmental allergies Anxiety, generalized Surgical History Hx of knee surgery History of arthroscopy of right knee Status post breast reduction History of breast biopsy History of bilateral tubal ligation History of section History of wisdom tooth extraction Family History Family/Other HTN (hypertension) Depression Type 2 diabetes mellitus Mother Asthma Arthritis Maternal Grandfather No problems noted. Maternal Grandmother No problems noted. Paternal Grandfather No problems noted. Paternal Grandmother No problems noted. Brother No problems noted. Brother No problems noted. Daughter No problems noted. Sister No problems noted. Sister Mental health disorder Sister No problems noted. Sister No problems noted. Son No problems noted. Son No problems noted. 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 How often do you have a drink containing alcohol?: Never 3. How often do you have six or more drinks on one occasion?: Never Total Score: 0 Score Reviewed/Action Taken: Yes ALEJANDRO-7 AMB Questionnaire ALEJANDRO-7 Date ALEJANDRO - 7 assessed: 01/17/24 Source: Developed by Drs. Jovany Dunlap, Edna Soto, Andrew Ochoa and colleagues, with an educational laura from [employer]. Review of Systems Const Denies chills and Denies fever(s) ENT Denies epistaxis and Denies nasal discharge Card Denies chest pain Resp Denies chest congestion, Denies cough and Denies hemoptysis GI Denies diarrhea and Denies nausea Skin/Breast Denies rash Neuro Reports no additional complaints Psych Reports no additional complaints Endo Reports no additional complaints Physical exam (Primary Care) Tobacco/Smoking Status: Tobacco use Status Tobacco use date assessed 04/16/24 04/16/24 08:56 Patient Tobacco Use Status Never used Tobacco 04/16/24 08:56 e-Cigarette/Vaping Use Never Used 04/16/24 08:56 Thrive Assessment: Date of Thrive Assessment Date Thrive assessed 01/17/24 04/16/24 08:56 Telehealth Telehealth Telehealth Platform: [employer] Location of provider rendering services: practice address Location of patient: address on file Patient Identification confirmed using: Name, : Yes Telehealth method: video (Attempted) Patient verbally consented to treatment: Yes Patient verbally consented to billing insurance company: Yes Patient informed of any privacy concerns related to visit: Yes Assessment and Plan Assessment & Plan (1) Mood disorder: Code(s): F39 - Unspecified mood [affective] disorder (2) Anxiety, generalized: Code(s): F41.1 - Generalized anxiety disorder (3) Anemia: Code(s): D64.9 - Anemia, unspecified Qualifiers: Anemia type: other cause Other causes of anemia: chronic disease, other Qualified Code(s): D63.8 - Anemia in other chronic diseases classified elsewhere Plan This is a telemedicine video conference patient is a 49-year-old female Reviewing her chart I noticed that she is slightly anemic, last time she had CBC was October of last year Patient was notified to repeat labs again As per her mood she is doing very well with lamotrigine 25 mg She is tolerating medication no side effects She will continue that for now I have sent refills We will re-evaluate again in 3 months. She offers no new complaints today Orders: Orders Complete Blood Count Auto Diff Today D64.9 - Anemia, unspecified, F39 - Unspecified mood [affective] disorder, F41.1 - Generalized anxiety disorder Comprehensive Met. Panel Today D64.9 - Anemia, unspecified, F39 - Unspecified mood [affective] disorder, F41.1 - Generalized anxiety disorder Medications: Refilled lamotrigine 25 mg PO DAILY 90 tabs 0RF 90 days Coding Level of Care Code Tele Est Pt Level 3 (62975) Diagnoses Mood disorder F39 Anxiety, generalized F41.1 Anemia in other chronic diseases classified elsewhere D63.8 Anemia type: other cause Other causes of anemia: chronic disease, other
== END 2024-04-16 10:39 | disposition home or self-care (01) ==
PROVIDERS: PCP Internal Medicine; Visit Provider Internal Medicine
DX: F39 Unspecified mood [affective] disorder (principal); F41.1 Generalized anxiety disorder; D63.8 Anemia in other chronic diseases classified elsewhere
CPT/HCPCS: 99213